=== PATIENT | male | born 1950 | race Caucasian/White ===

== ENCOUNTER 2018-05-28 10:09 | Emergency (ER) | payer MEDICARE, OTHER ==
[2018-05-28] MEDS ORDERED: DEXAMETHASONE 10 MG/ML VIAL PO STA (12:23)
--- NOTE | 2018-05-28 12:26 | ED Physician Documentation ---
PD HPI BACK PAIN - Stated complaint Stated Complaint: L LOWER BACK PAIN - Chief complaint Chief Complaint: Back Pain - History obtained from History obtained from: Patient, Family - History of Present Illness Timing - onset: How many days ago (2) Timing - duration: Days (2) Timing - details: Gradual onset, Still present Location: Lower, Left Quality: Pain, Spasm, Sharp Associated symptoms: No: Fever, Weakness, Numbness, Incontinent of urine, Unable to urinate, Hematuria, Incontinent of stool Improves with: Rest, Position, Meds Worsened by: Movement, Lifting, Twisting Contributing factors: Other (sweeping snow and ice off of car) Similar symptoms before: Has not had sx before Recently seen: Other - Additional information Additional information: 67-year-old male who is fairly sedentary has developed pain in his left lower back that is severe. He states that he went to see a chiropractor yesterday and was adjusted this helped for about 2 hours and then the pain was back worse than it had started. He states that when he went to get out of bed this morning he could barely move and so is come to the emergency department for evaluation. He denies any radiation of the pain down his leg or numbness or tingling in the perineum. He has not had any trouble with bowel or bladder. He does not know of any specific injury to the area his does state that she he was removing snow off of the car several days before this ever started. Review of Systems Constitutional: denies: Fever, Chills, Myalgias Eyes: denies: Decreased vision Ears: denies: Ear pain Nose: denies: Rhinorrhea / runny nose, Congestion Respiratory: denies: Cough GI: denies: Nausea, Vomiting : denies: Dysuria Skin: denies: Rash Musculoskeletal: reports: Back pain. denies: Neck pain, Extremity pain Neurologic: denies: Generalized weakness, Focal weakness, Numbness PD PAST MEDICAL HISTORY - Present Medications Home Medications: Ambulatory Orders Medication Instructions Recorded Confirmed Aspirin [Aspirin EC] 1 tab PO DAILY 05/28/18 05/28/18 Celecoxib 1 tab PO BID PRN 05/28/18 05/28/18 Cyclobenzaprine [Flexeril] 10 mg PO TID PRN #20 tablet 05/28/18 Hydrocodone/Acetaminophen 1 - 2 each PO Q6H PRN #14 tablet 05/28/18 [Hydrocodon-Acetaminophen 5-325] Multivitamin [Multivitamins] 1 tab PO DAILY 05/28/18 05/28/18 - Allergies Allergies/Adverse Reactions: Allergies Allergy/AdvReac Type Severity Reaction Status Date / Time iodine Allergy Rash Verified 05/28/18 10:19 PD ED PE NORMAL - Vitals Vital signs reviewed: Yes (hypertensive ) - General General: Alert and oriented X 3, No acute distress, Well developed/nourished - HEENT HEENT: Atraumatic, PERRL, EOMI - Respiratory Respiratory: No respiratory distress - Back Back: No CVA TTP, No spinal TTP, Other (There is specific point tenderness to the left lower lumbar paraspinous muscles above and not extending into the sciatic notch. There is not CVA tenderness. 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, No motor deficit, No sensory deficit, Normal speech Eye Opening: Spontaneous Motor: Obeys Commands Verbal: Oriented GCS Score: 15 - Psych Psych: Normal mood, Normal affect Results - Vitals Vitals: Vital Signs - 24 hr 05/28/18 10:16 Temperature 36.3 C L Heart Rate 79 Respiratory 18 Rate Blood Pressure 173/101 H O2 Saturation 100 Oxygen O2 Source Room air PD MEDICAL DECISION MAKING - ED course Complexity details: considered differential, d/w patient, d/w family ED course: 67-year-old previously well male with lumbar paraspinous muscle spasm is administered dexamethasone 10 mg orally and we will place him on some pain medication muscle relaxant. I have asked him to stop using a heating pack and to use ice and stretch. Departure - Departure Disposition: 01 Home, Self Care Clinical Impression: Lumbar paraspinal muscle spasm Condition: Stable Instructions: ED Low Back Pain Injury Follow-Up: ROXANNE DUBOIS [Primary Care Provider] - Prescriptions: Cyclobenzaprine [Flexeril] 10 mg PO TID PRN #20 tablet PRN Reason: Spasms Hydrocodone/Acetaminophen [Hydrocodon-Acetaminophen 5-325] 1 - 2 each PO Q6H PRN #14 tablet PRN Reason: pain
[2018-05-28 12:53] VITALS: BP 168/95
== END 2018-05-28 12:51 | disposition home or self-care (01) ==
LOC: ED 10:09
DX: M62.830 Muscle spasm of back (principal); Z79.82 Long term (current) use of aspirin
CPT/HCPCS: 99283

== ENCOUNTER 2019-06-04 00:23 | Emergency (ER) | payer MEDICARE, OTHER ==
[2019-06-04 00:35] VITALS: BP 167/86
--- NOTE | 2019-06-04 00:40 | ED Physician Documentation ---
History of Present Illness - Stated complaint Stated Complaint: FO IN EAR - Chief complaint Chief Complaint: Heent - Additonal information Additional information: This is a 68-year-old male who presents with a foreign object in his left ear. He was taking out his hearing aid and silicone shield piece remained behind in his left ear. He does not have discomfort. Review of Systems Constitutional: denies: Fever Ears: reports: Foreign body PD PAST MEDICAL HISTORY - Past Surgical History Past Surgical History: Yes - Present Medications Home Medications: Ambulatory Orders Medication Instructions Recorded Confirmed Aspirin [Aspirin EC] 1 tab PO DAILY 05/28/18 06/04/19 Multivitamin [Multivitamins] 1 tab PO DAILY 05/28/18 06/04/19 - Allergies Allergies/Adverse Reactions: Allergies Allergy/AdvReac Type Severity Reaction Status Date / Time iodine Allergy Rash Verified 06/04/19 00:32 - Social History Does the pt smoke?: No Smoking Status: Never smoker Does the pt drink ETOH?: No Does the pt have substance abuse?: No - Immunizations Immunizations are current?: Yes - POLST Patient has POLST: No PD ED PE NORMAL - Vitals Vital signs reviewed: Yes - General General: Alert and oriented X 3, No acute distress - HEENT HEENT: Other (There is a silicon circular object just inside the ear canal on the left. The external canal otherwise appear normal. Tympanic membrane intact.) - Cardiac Cardiac: Other (Warm, well-perfused skin) - Respiratory Respiratory: No respiratory distress - Neuro Neuro: Alert and oriented X 3 - Psych Psych: Normal mood, Normal affect Results - Vitals Vitals: Oxygen O2 Source Room air PD MEDICAL DECISION MAKING - ED course ED course: Patient presents with a silicone piece of his hearing aid retained in his left ear canal, this is visible on exam, fairly superficial in the canal and easily retrieved using forceps without any complication. There is no residual foreign body in the ear, the ear itself appears normal without inflammation and patient is have no other complaints. He was discharged home and he will follow-up with his primary care provider as needed. Departure - Departure Disposition: 01 Home, Self Care Clinical Impression: Foreign body in ear Qualifiers: Encounter type: initial encounter Laterality: left Qualified Code(s): T16.2XXA - Foreign body in left ear, initial encounter Condition: Good Comments: We removed the piece of hearing aid from your ear, if you have any further issues return to the emergency department or follow-up with your primary care provider Discharge Date/Time: 06/04/19 01:00
== END 2019-06-04 01:00 | disposition home or self-care (01) ==
LOC: ED 00:23
DX: T16.2XXA Foreign body in left ear, initial encounter (principal); X58.XXXA Exposure to other specified factors, initial encounter
CPT/HCPCS: 69200; 99281; 99282

== ENCOUNTER 2022-01-11 19:50 | Emergency (ER) | payer MEDICARE, OTHER ==
--- OUTSIDE RECORDS SUMMARY | 2022-01-11 20:00 | EXTERNAL MEDICAL SUMMARY RPT | Continuity of Care Document ---
:1950 Author Organization [facility] Address [address] [place] [phone] Phone Allergies No information. Encounters No information. Functional Status No information. Immunizations No information. Medications No information. Problems No information. Procedures No information. Results/Labs test date author facility value unit interpret ation Result panel 1 (unknown) (no (unknown) (unknown) (no value) (units (unk nown) date) unknown) (unknown) (no (unknown) (unknown) (no value) (units (unk nown) date) unknown) (unknown) (no (unknown) (unknown) 12/04/21 (units (unkno wn) date) unknown) (unknown) (no (unknown) (unknown) 14:02 (units (unkno wn) date) unknown) (unknown) (no (unknown) (unknown) [place] [address] (unit s (unknown) date) unknown) (unknown) (no (unknown) (unknown) Draft (units (unkno wn) date) unknown) (unknown) (no (unknown) (unknown) Rash (units (unkno wn) date) unknown) (unknown) (no (unknown) (unknown) Shows has a Positive (uni ts (unknown) date) results. unknown) (unknown) (no (unknown) (unknown) Sleep Visit (units (un known) date) unknown) (unknown) (no (unknown) (unknown) [facility] (units (unknown) date) Center unknown) (unknown) (no (unknown) (unknown) (no value) (units (unk nown) date) unknown) (unknown) (no (unknown) (unknown) 0 = Would never doze (uni ts (unknown) date) or sleep, 1 = Slight unknown) chance of dozing or sleeping, 2 = (unknown) (no (unknown) (unknown) 12/04/21 (units (unkno wn) date) unknown) (unknown) (no (unknown) (unknown) [id number] (units (unkno wn) date) unknown) (unknown) (no (unknown) (unknown) Age/Sex: 71 / M Date (uni ts (unknown) date) of Service: unknown) (unknown) (no (unknown) (unknown) Allergies (units (unkn own) date) unknown) (unknown) (no (unknown) (unknown) Attending Dr: Ochoa (uni ts (unknown) date) Jane CAICEDO unknown) (unknown) (no (unknown) (unknown) BMI 35.2 (units (unkno wn) date) unknown) (unknown) (no (unknown) (unknown) BP 149/81 H (units (un known) date) unknown) (unknown) (no (unknown) (unknown) Being a passenger in (uni ts (unknown) date) a motor vehicle for unknown) an hour or so: 1 = Slight (unknown) (no (unknown) (unknown) Blood Pressure (units (unknown) date) Location Lt brachial unknown) (unknown) (no (unknown) (unknown) Claustrophobia (units (unknown) date) () unknown) (unknown) (no (unknown) (unknown) : 1950 (units (unknown) date) Acct:[id number] unknown) (unknown) (no (unknown) (unknown) Dept at (units (unkno wn) date) . unknown) (unknown) (no (unknown) (unknown) Documented By: (units (unknown) date) Ochoa Lara MD unknown) 12/04/21 1402 (unknown) (no (unknown) (unknown) [place] Score: 8 (units (unknown) date) unknown) (unknown) (no (unknown) (unknown) [place] Sleepiness (units (unknown) date) Scale unknown) (unknown) (no (unknown) (unknown) Height 5 ft 11 in (units (unknown) date) unknown) (unknown) (no (unknown) (unknown) Insomnia, (units (unkn own) date) psychophysiological unknown) () (unknown) (no (unknown) (unknown) Intake (units (unkno wn) date) unknown) (unknown) (no (unknown) (unknown) Loc: SLEEP (units (unk nown) date) unknown) (unknown) (no (unknown) (unknown) Lying down in the (units (unknown) date) afternoon: 2 = unknown) Moderate (unknown) (no (unknown) (unknown) Medical History (units (unknown) date) (Reviewed 12/14/20 @ unknown) 14:41 by LILLIE Richmond) (unknown) (no (unknown) (unknown) Moderate chance of (units (unknown) date) dozing or sleeping, 3 unknown) = High chance of dozing or sleeping (unknown) (no (unknown) (unknown) Obesity (BMI (units (u nknown) date) 30-39.9) unknown) (unknown) (no (unknown) (unknown) Obstructive sleep (units (unknown) date) apnea unknown) (unknown) (no (unknown) (unknown) PFSH (units (unkno wn) date) unknown) (unknown) (no (unknown) (unknown) PPD Serum Adverse (units (unknown) date) Reaction (Uncoded unknown) 12/14/20 14:46) (unknown) (no (unknown) (unknown) Pain (units (unkno wn) date) unknown) (unknown) (no (unknown) (unknown) Pain scale (1-10): 1 (uni ts (unknown) date) unknown) (unknown) (no (unknown) (unknown) Patient: (units (unkno wn) date) Gold Sanchez MR#: unknown) M0003 (unknown) (no (unknown) (unknown) Position Sitting (units (unknown) date) unknown) (unknown) (no (unknown) (unknown) Pulse 82 (units (unkn own) date) unknown) (unknown) (no (unknown) (unknown) Questionnaires (units (unknown) date) unknown) (unknown) (no (unknown) (unknown) Reason For Visit (units (unknown) date) unknown) (unknown) (no (unknown) (unknown) Respiration 16 (units (unknown) date) unknown) (unknown) (no (unknown) (unknown) Signed By: (units (unk nown) date) unknown) (unknown) (no (unknown) (unknown) Sitting and Reading: (uni ts (unknown) date) 0 = Never (None) unknown) (unknown) (no (unknown) (unknown) Sitting and talking (unit s (unknown) date) to someone: 0 = Never unknown) (None) (unknown) (no (unknown) (unknown) Sitting inactive in (unit s (unknown) date) a public place: 2 = unknown) Moderate (unknown) (no (unknown) (unknown) Sitting quietly (units (unknown) date) after lunch (no unknown) alcohol): 1 = Slight (unknown) (no (unknown) (unknown) Smoking Status: (units (unknown) date) Never smoker unknown) (unknown) (no (unknown) (unknown) Social History (units (unknown) date) unknown) (unknown) (no (unknown) (unknown) Stopped for a few (units (unknown) date) minutes in traffic: 0 unknown) = Never (None) (unknown) (no (unknown) (unknown) This note may have (units (unknown) date) been all or partially unknown) generated using voice recognition (unknown) (no (unknown) (unknown) Tobacco + Substance (unit s (unknown) date) Use unknown) (unknown) (no (unknown) (unknown) Tobacco Status (units (unknown) date) unknown) (unknown) (no (unknown) (unknown) Visit Reasons: 6m (units (unknown) date) optigen/reschld from unknown) mee (unknown) (no (unknown) (unknown) Vitals (units (unkno wn) date) unknown) (unknown) (no (unknown) (unknown) Watching TV: 2 = (units (unknown) date) Moderate unknown) (unknown) (no (unknown) (unknown) Weight 253 lb (units ( unknown) date) unknown) (unknown) (no (unknown) (unknown) caregiver/support (units (unknown) date) person: No unknown) (unknown) (no (unknown) (unknown) details: to Luz (units (unknown) date) unknown) (unknown) (no (unknown) (unknown) have occurred. If (units (unknown) date) there are any unknown) questions, please contact the Medical Records (unknown) (no (unknown) (unknown) household members: (units (unknown) date) spouse unknown) (unknown) (no (unknown) (unknown) housing: house (units (unknown) date) unknown) (unknown) (no (unknown) (unknown) iodine Allergy (units (unknown) date) (Verified 12/14/20 unknown) 14:46) (unknown) (no (unknown) (unknown) lives independently: (uni ts (unknown) date) Yes unknown) (unknown) (no (unknown) (unknown) marital status: (units (unknown) date) unknown) (unknown) (no (unknown) (unknown) may occur. (units (unk nown) date) Occasional wrong-word unknown) or 'sound-alike' substitutions may have (unknown) (no (unknown) (unknown) occupational status: (uni ts (unknown) date) previously employed unknown) (unknown) (no (unknown) (unknown) occurred due to the (unit s (unknown) date) inherent limitations unknown) of voice recognition software. Please (unknown) (no (unknown) (unknown) read the note (units ( unknown) date) carefully and unknown) recognize, using context, where these substitutions (unknown) (no (unknown) (unknown) software. 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 (unknown) (no (unknown) (unknown) substance use type: (unit s (unknown) date) does not use unknown) Result panel 2 (unknown) (no (unknown) (unknown) (no value) (units (unk nown) date) unknown) (unknown) (no (unknown) (unknown) (no value) (units (unk nown) date) unknown) (unknown) (no (unknown) (unknown) 12/04/21 (units (unkno wn) date) unknown) (unknown) (no (unknown) (unknown) 14:02 (units (unkno wn) date) unknown) (unknown) (no (unknown) (unknown) [place] [id number] (unit s (unknown) date) unknown) (unknown) (no (unknown) (unknown) Draft (units (unkno wn) date) unknown) (unknown) (no (unknown) (unknown) Rash (units (unkno wn) date) unknown) (unknown) (no (unknown) (unknown) Shows has a Positive (uni ts (unknown) date) results. unknown) (unknown) (no (unknown) (unknown) Sleep Visit (units (un known) date) unknown) (unknown) (no (unknown) (unknown) [facility] (units (unknown) date) Center unknown) (unknown) (no (unknown) (unknown) (no value) (units (unk nown) date) unknown) (unknown) (no (unknown) (unknown) 0 = Would never doze (uni ts (unknown) date) or sleep, 1 = Slight unknown) chance of dozing or sleeping, 2 = (unknown) (no (unknown) (unknown) 12/04/21 (units (unkno wn) date) unknown) (unknown) (no (unknown) (unknown) [id number] (units (unkno wn) date) unknown) (unknown) (no (unknown) (unknown) Age/Sex: 71 / M Date (uni ts (unknown) date) of Service: unknown) (unknown) (no (unknown) (unknown) Allergies (units (unkn own) date) unknown) (unknown) (no (unknown) (unknown) Attending Dr: Ochoa (uni ts (unknown) date) Jane CAICEDO unknown) (unknown) (no (unknown) (unknown) BMI 35.2 (units (unkno wn) date) unknown) (unknown) (no (unknown) (unknown) BP 149/81 H (units (un known) date) unknown) (unknown) (no (unknown) (unknown) Being a passenger in (uni ts (unknown) date) a motor vehicle for unknown) an hour or so: 1 = Slight (unknown) (no (unknown) (unknown) Blood Pressure (units (unknown) date) Location Lt brachial unknown) (unknown) (no (unknown) (unknown) CPAP (8-18 cwp) (units (unknown) date) unknown) (unknown) (no (unknown) (unknown) Chief Complaint: (units (unknown) date) Here to follow-up unknown) regarding the effectiveness of therapy for (unknown) (no (unknown) (unknown) Claustrophobia (units (unknown) date) () unknown) (unknown) (no (unknown) (unknown) Clinical Course (units (unknown) date) unknown) (unknown) (no (unknown) (unknown) Condition is Onset: (unit s (unknown) date) Chronic and ongoing unknown) condition (unknown) (no (unknown) (unknown) : 1950 (units (unknown) date) Acct:[id number] unknown) (unknown) (no (unknown) (unknown) Dept at (units (unkno wn) date) . unknown) (unknown) (no (unknown) (unknown) Details: (units (unkno wn) date) unknown) (unknown) (no (unknown) (unknown) Documented By: (units (unknown) date) Ochoa Lara MD unknown) 12/04/21 1402 (unknown) (no (unknown) (unknown) [place] Score: 8 (units (unknown) date) unknown) (unknown) (no (unknown) (unknown) [place] Sleepiness (units (unknown) date) Scale unknown) (unknown) (no (unknown) (unknown) HPI (units (unkno wn) date) unknown) (unknown) (no (unknown) (unknown) HPI Sleep Follow Up (unit s (unknown) date) unknown) (unknown) (no (unknown) (unknown) Height 180.34 cm (units (unknown) date) unknown) (unknown) (no (unknown) (unknown) Insomnia, (units (unkn own) date) psychophysiological unknown) (-1957) (unknown) (no (unknown) (unknown) Intake (units (unkno wn) date) unknown) (unknown) (no (unknown) (unknown) Loc: SLEEP (units (unk nown) date) unknown) (unknown) (no (unknown) (unknown) Lying down in the (units (unknown) date) afternoon: 2 = unknown) Moderate (unknown) (no (unknown) (unknown) Medical History (units (unknown) date) (Reviewed 12/14/20 @ unknown) 14:41 by LILLIE Richmond) (unknown) (no (unknown) (unknown) Moderate chance of (units (unknown) date) dozing or sleeping, 3 unknown) = High chance of dozing or sleeping (unknown) (no (unknown) (unknown) Obesity (BMI (units (u nknown) date) 30-39.9) unknown) (unknown) (no (unknown) (unknown) Obstructive sleep (units (unknown) date) apnea unknown) (unknown) (no (unknown) (unknown) PFSH (units (unkno wn) date) unknown) (unknown) (no (unknown) (unknown) PPD Serum Adverse (units (unknown) date) Reaction (Uncoded unknown) 12/14/20 14:46) (unknown) (no (unknown) (unknown) Pain (units (unkno wn) date) unknown) (unknown) (no (unknown) (unknown) Pain scale (1-10): 1 (uni ts (unknown) date) unknown) (unknown) (no (unknown) (unknown) Patient reports (units (unknown) date) difficulty falling unknown) asleep is denied, difficulty staying asleep (unknown) (no (unknown) (unknown) Patient: (units (unkno wn) date) Gold Sanchez MR#: unknown) M0003 (unknown) (no (unknown) (unknown) Pertinent (units (unkn own) date) Positives/Negatives unknown) (unknown) (no (unknown) (unknown) Position Sitting (units (unknown) date) unknown) (unknown) (no (unknown) (unknown) Pulse 82 (units (unkno wn) date) unknown) (unknown) (no (unknown) (unknown) Questionnaires (units (unknown) date) unknown) (unknown) (no (unknown) (unknown) Reason For Visit (units (unknown) date) unknown) (unknown) (no (unknown) (unknown) Respiration 16 (units (unknown) date) unknown) (unknown) (no (unknown) (unknown) Hollie comes in today (uni ts (unknown) date) for follow-up on his unknown) CPAP therapy. We increased his (unknown) (no (unknown) (unknown) Signed By: (units (unk nown) date) unknown) (unknown) (no (unknown) (unknown) Sitting and Reading: (uni ts (unknown) date) 0 = Never (None) unknown) (unknown) (no (unknown) (unknown) Sitting and talking (unit s (unknown) date) to someone: 0 = Never unknown) (None) (unknown) (no (unknown) (unknown) Sitting inactive in (unit s (unknown) date) a public place: 2 = unknown) Moderate (unknown) (no (unknown) (unknown) Sitting quietly (units (unknown) date) after lunch (no unknown) alcohol): 1 = Slight (unknown) (no (unknown) (unknown) Sleep Schedule (units (unknown) date) Branch: consistent, unknown) daytime somnolence occasional, snoring not (unknown) (no (unknown) (unknown) Smoking Status: (units (unknown) date) Never smoker unknown) (unknown) (no (unknown) (unknown) Social History (units (unknown) date) unknown) (unknown) (no (unknown) (unknown) Stopped for a few (units (unknown) date) minutes in traffic: 0 unknown) = Never (None) (unknown) (no (unknown) (unknown) Symptoms (units (unkno wn) date) unknown) (unknown) (no (unknown) (unknown) This note may have (units (unknown) date) been all or partially unknown) generated using voice recognition (unknown) (no (unknown) (unknown) Tobacco + Substance (unit s (unknown) date) Use unknown) (unknown) (no (unknown) (unknown) Tobacco Status (units (unknown) date) unknown) (unknown) (no (unknown) (unknown) Treatment Effects: (units (unknown) date) Pap Treatment unknown) Response/Side Effects: adherent to current PAP (unknown) (no (unknown) (unknown) Treatment (units (unkn own) date) Response/Side Affects unknown) (unknown) (no (unknown) (unknown) Visit Reasons: 6m (units (unknown) date) optigen/reschld from unknown) mee (unknown) (no (unknown) (unknown) Visit type (FU): (units (unknown) date) follow up of ANETTE unknown) therapy Follow up evaluation of ANETTE therapy: (unknown) (no (unknown) (unknown) Vitals (units (unkno wn) date) unknown) (unknown) (no (unknown) (unknown) Watching TV: 2 = (units (unknown) date) Moderate unknown) (unknown) (no (unknown) (unknown) Weight 114.759 kg (units (unknown) date) unknown) (unknown) (no (unknown) (unknown) appreciated, apnea (units (unknown) date) not witnessed, unknown) choking or gasping Choking or Gasping Branch: (unknown) (no (unknown) (unknown) caregiver/support (units (unknown) date) person: No unknown) (unknown) (no (unknown) (unknown) consentrating/focusi (uni ts (unknown) date) ng durng the day unknown) (unknown) (no (unknown) (unknown) denied (units (unkno wn) date) unknown) (unknown) (no (unknown) (unknown) denied, early (units ( unknown) date) morning awakening unknown) rare, spending time in bed not sleeping a (unknown) (no (unknown) (unknown) denied, epworth sleep (uni ts (unknown) date) scale score (12/06), unknown) bruxism Bruxism Branch: denied, sleep (unknown) (no (unknown) (unknown) denies night sweats, (unit s (unknown) date) denies morning unknown) headache, reports nasal congestion at night, (unknown) (no (unknown) (unknown) denies nocturnal (units (unknown) date) palpitations, denies unknown) heart burn symptoms at night, denies (unknown) (no (unknown) (unknown) details: to Luz (units (unknown) date) unknown) (unknown) (no (unknown) (unknown) have occurred. If (units (unknown) date) there are any unknown) questions, please contact the Medical Records (unknown) (no (unknown) (unknown) his ANETTE (units (unkno wn) date) unknown) (unknown) (no (unknown) (unknown) household members: (units (unknown) date) spouse unknown) (unknown) (no (unknown) (unknown) housing: house (units (unknown) date) unknown) (unknown) (no (unknown) (unknown) iodine Allergy (units (unknown) date) (Verified 12/14/20 unknown) 14:46) (unknown) (no (unknown) (unknown) little less sleepy (units (unknown) date) throughout the day. unknown) He reports no difficulties with the (unknown) (no (unknown) (unknown) little, normal (units ( unknown) date) bedtime (3300-4989), unknown) normal wake time (6864-5031), sleep schedule (unknown) (no (unknown) (unknown) lives independently: (uni ts (unknown) date) Yes unknown) (unknown) (no (unknown) (unknown) machine or his full (units (unknown) date) face mask, despite unknown) his persistent claustrophia. His daytime (unknown) (no (unknown) (unknown) marital status: (units (unknown) date) unknown) (unknown) (no (unknown) (unknown) may occur. (units (unk nown) date) Occasional wrong-word unknown) or 'sound-alike' substitutions may have (unknown) (no (unknown) (unknown) nocturia, denies (units (unknown) date) pain, denies unknown) dizziness in the morning or denies trouble (unknown) (no (unknown) (unknown) occupational status: (uni ts (unknown) date) previously employed unknown) (unknown) (no (unknown) (unknown) occurred due to the (unit s (unknown) date) inherent limitations unknown) of voice recognition software. Please (unknown) (no (unknown) (unknown) on PAP well and (units (unknown) date) sleep quality well unknown) (unknown) (no (unknown) (unknown) pressure at last (units (unknown) date) visit to 8-18 [facility], unknown) and he has tolerated that well, feeling a (unknown) (no (unknown) (unknown) read the note (units ( unknown) date) carefully and unknown) recognize, using context, where these substitutions (unknown) (no (unknown) (unknown) reports dry mouth, (units (unknown) date) denies sore throat in unknown) the morning, denies nocturnal cough, (unknown) (no (unknown) (unknown) sleepiness has (units (unknown) date) improved on PAP unknown) therapy. (unknown) (no (unknown) (unknown) software. 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 (unknown) (no (unknown) (unknown) substance use type: (unit s (unknown) date) does not use unknown) (unknown) (no (unknown) (unknown) talking Sleep (units ( unknown) date) Talking Branch: unknown) denied and sleep walking Sleep Walking Branch: (unknown) (no (unknown) (unknown) treatment stable on (unit s (unknown) date) treatment unknown) Result panel 3 (unknown) (no (unknown) (unknown) (no value) (units (unk nown) date) unknown) (unknown) (no (unknown) (unknown) (no value) (units (unk nown) date) unknown) (unknown) (no (unknown) (unknown) 12/04/21 (units (unkno wn) date) unknown) (unknown) (no (unknown) (unknown) 14:02 (units (unkno wn) date) unknown) (unknown) (no (unknown) (unknown) MILO Palacios [id number] (unit s (unknown) date) unknown) (unknown) (no (unknown) (unknown) Draft (units (unkno wn) date) unknown) (unknown) (no (unknown) (unknown) Rash (units (unkno wn) date) unknown) (unknown) (no (unknown) (unknown) Shows has a Positive (uni ts (unknown) date) results. unknown) (unknown) (no (unknown) (unknown) Sleep Visit (units (un known) date) unknown) (unknown) (no (unknown) (unknown) [facility] (units (unknown) date) Center unknown) (unknown) (no (unknown) (unknown) (no value) (units (unk nown) date) unknown) (unknown) (no (unknown) (unknown) 0 = Would never doze (uni ts (unknown) date) or sleep, 1 = Slight unknown) chance of dozing or sleeping, 2 = (unknown) (no (unknown) (unknown) 12/04/21 (units (unkno wn) date) unknown) (unknown) (no (unknown) (unknown) [id number] (units (unkno wn) date) unknown) (unknown) (no (unknown) (unknown) Age/Sex: 71 / M Date (uni ts (unknown) date) of Service: unknown) (unknown) (no (unknown) (unknown) Allergies (units (unkn own) date) unknown) (unknown) (no (unknown) (unknown) Attending Dr: Ochoa (uni ts (unknown) date) Jane CAICEDO unknown) (unknown) (no (unknown) (unknown) BMI 35.2 (units (unkno wn) date) unknown) (unknown) (no (unknown) (unknown) BP 149/81 H (units (un known) date) unknown) (unknown) (no (unknown) (unknown) Being a passenger in (uni ts (unknown) date) a motor vehicle for unknown) an hour or so: 1 = Slight (unknown) (no (unknown) (unknown) Blood Pressure (units (unknown) date) Location Lt brachial unknown) (unknown) (no (unknown) (unknown) CPAP (8-18 cwp) (units (unknown) date) unknown) (unknown) (no (unknown) (unknown) Chief Complaint: (units (unknown) date) Here to follow-up unknown) regarding the effectiveness of therapy for (unknown) (no (unknown) (unknown) Claustrophobia (units (unknown) date) () unknown) (unknown) (no (unknown) (unknown) Clinical Course (units (unknown) date) unknown) (unknown) (no (unknown) (unknown) Condition is Onset: (unit s (unknown) date) Chronic and ongoing unknown) condition (unknown) (no (unknown) (unknown) : 1950 (units (unknown) date) Acct:[id number] unknown) (unknown) (no (unknown) (unknown) Dept at (units (unkno wn) date) . unknown) (unknown) (no (unknown) (unknown) Details: (units (unkno wn) date) unknown) (unknown) (no (unknown) (unknown) Documented By: (units (unknown) date) Ochoa Lara MD unknown) 12/04/21 1402 (unknown) (no (unknown) (unknown) [place] Score: 8 (units (unknown) date) unknown) (unknown) (no (unknown) (unknown) [place] Sleepiness (units (unknown) date) Scale unknown) (unknown) (no (unknown) (unknown) HPI (units (unkno wn) date) unknown) (unknown) (no (unknown) (unknown) HPI Sleep Follow Up (unit s (unknown) date) unknown) (unknown) (no (unknown) (unknown) Height 180.34 cm (units (unknown) date) unknown) (unknown) (no (unknown) (unknown) Insomnia, (units (unkn own) date) psychophysiological unknown) () (unknown) (no (unknown) (unknown) Intake (units (unkno wn) date) unknown) (unknown) (no (unknown) (unknown) Loc: SLEEP (units (unk nown) date) unknown) (unknown) (no (unknown) (unknown) Lying down in the (units (unknown) date) afternoon: 2 = unknown) Moderate (unknown) (no (unknown) (unknown) Medical History (units (unknown) date) (Reviewed 12/14/20 @ unknown) 14:41 by LILLIE Richmond) (unknown) (no (unknown) (unknown) Moderate chance of (units (unknown) date) dozing or sleeping, 3 unknown) = High chance of dozing or sleeping (unknown) (no (unknown) (unknown) Obesity (BMI (units (u nknown) date) 30-39.9) unknown) (unknown) (no (unknown) (unknown) Obstructive sleep (units (unknown) date) apnea unknown) (unknown) (no (unknown) (unknown) PFSH (units (unkno wn) date) unknown) (unknown) (no (unknown) (unknown) PPD Serum Adverse (units (unknown) date) Reaction (Uncoded unknown) 12/14/20 14:46) (unknown) (no (unknown) (unknown) Pain (units (unkno wn) date) unknown) (unknown) (no (unknown) (unknown) Pain scale (1-10): 1 (uni ts (unknown) date) unknown) (unknown) (no (unknown) (unknown) Patient reports (units (unknown) date) difficulty falling unknown) asleep is denied, difficulty staying asleep (unknown) (no (unknown) (unknown) Patient: (units (unkno wn) date) Gold Snachez MR#: unknown) M0003 (unknown) (no (unknown) (unknown) Pertinent (units (unkn own) date) Positives/Negatives unknown) (unknown) (no (unknown) (unknown) Position Sitting (units (unknown) date) unknown) (unknown) (no (unknown) (unknown) Pulse 82 (units (unkno wn) date) unknown) (unknown) (no (unknown) (unknown) Questionnaires (units (unknown) date) unknown) (unknown) (no (unknown) (unknown) Reason For Visit (units (unknown) date) unknown) (unknown) (no (unknown) (unknown) Respiration 16 (units (unknown) date) unknown) (unknown) (no (unknown) (unknown) Hollie comes in today (uni ts (unknown) date) for follow-up on his unknown) CPAP therapy. We increased his (unknown) (no (unknown) (unknown) Signed By: (units (unk nown) date) unknown) (unknown) (no (unknown) (unknown) Sitting and Reading: (uni ts (unknown) date) 0 = Never (None) unknown) (unknown) (no (unknown) (unknown) Sitting and talking (unit s (unknown) date) to someone: 0 = Never unknown) (None) (unknown) (no (unknown) (unknown) Sitting inactive in (unit s (unknown) date) a public place: 2 = unknown) Moderate (unknown) (no (unknown) (unknown) Sitting quietly (units (unknown) date) after lunch (no unknown) alcohol): 1 = Slight (unknown) (no (unknown) (unknown) Sleep Schedule (units (unknown) date) Branch: consistent, unknown) daytime somnolence occasional, snoring not (unknown) (no (unknown) (unknown) Smoking Status: (units (unknown) date) Never smoker unknown) (unknown) (no (unknown) (unknown) Social History (units (unknown) date) unknown) (unknown) (no (unknown) (unknown) Stopped for a few (units (unknown) date) minutes in traffic: 0 unknown) = Never (None) (unknown) (no (unknown) (unknown) Symptoms (units (unkno wn) date) unknown) (unknown) (no (unknown) (unknown) This note may have (units (unknown) date) been all or partially unknown) generated using voice recognition (unknown) (no (unknown) (unknown) Tobacco + Substance (unit s (unknown) date) Use unknown) (unknown) (no (unknown) (unknown) Tobacco Status (units (unknown) date) unknown) (unknown) (no (unknown) (unknown) Treatment Effects: (units (unknown) date) Pap Treatment unknown) Response/Side Effects: adherent to current PAP (unknown) (no (unknown) (unknown) Treatment (units (unkn own) date) Response/Side Affects unknown) (unknown) (no (unknown) (unknown) Visit Reasons: 6m (units (unknown) date) optigen/reschld from unknown) mee (unknown) (no (unknown) (unknown) Visit type (FU): (units (unknown) date) follow up of ANETTE unknown) therapy Follow up evaluation of ANETTE therapy: (unknown) (no (unknown) (unknown) Vitals (units (unkno wn) date) unknown) (unknown) (no (unknown) (unknown) Watching TV: 2 = (units (unknown) date) Moderate unknown) (unknown) (no (unknown) (unknown) Weight 114.759 kg (units (unknown) date) unknown) (unknown) (no (unknown) (unknown) appreciated, apnea (units (unknown) date) not witnessed, unknown) choking or gasping Choking or Gasping Branch: (unknown) (no (unknown) (unknown) caregiver/support (units (unknown) date) person: No unknown) (unknown) (no (unknown) (unknown) consentrating/focusi (uni ts (unknown) date) ng durng the day unknown) (unknown) (no (unknown) (unknown) denied (units (unkno wn) date) unknown) (unknown) (no (unknown) (unknown) denied, early (units ( unknown) date) morning awakening unknown) rare, spending time in bed not sleeping a li (unknown) (no (unknown) (unknown) denied, epworth sleep (uni ts (unknown) date) scale score (12/06), unknown) bruxism Bruxism Branch: denied, sleep (unknown) (no (unknown) (unknown) denies night sweats, (unit s (unknown) date) denies morning unknown) headache, reports nasal congestion at night, (unknown) (no (unknown) (unknown) denies nocturnal (units (unknown) date) palpitations, denies unknown) heart burn symptoms at night, denies (unknown) (no (unknown) (unknown) details: to Luz (units (unknown) date) unknown) (unknown) (no (unknown) (unknown) have occurred. If (units (unknown) date) there are any unknown) questions, please contact the Medical Records (unknown) (no (unknown) (unknown) his ANETTE (units (unkno wn) date) unknown) (unknown) (no (unknown) (unknown) household members: (units (unknown) date) spouse unknown) (unknown) (no (unknown) (unknown) housing: house (units (unknown) date) unknown) (unknown) (no (unknown) (unknown) iodine Allergy (units (unknown) date) (Verified 12/14/20 unknown) 14:46) (unknown) (no (unknown) (unknown) little less sleepy (units (unknown) date) throughout the day. unknown) He reports no difficulties with the (unknown) (no (unknown) (unknown) lives independently: (uni ts (unknown) date) Yes unknown) (unknown) (no (unknown) (unknown) machine or his full (units (unknown) date) face mask, despite unknown) his persistent claustrophia. His daytime (unknown) (no (unknown) (unknown) marital status: (units (unknown) date) unknown) (unknown) (no (unknown) (unknown) may occur. (units (unk nown) date) Occasional wrong-word unknown) or 'sound-alike' substitutions may have (unknown) (no (unknown) (unknown) nocturia, denies (units (unknown) date) pain, denies unknown) dizziness in the morning or denies trouble (unknown) (no (unknown) (unknown) occupational status: (uni ts (unknown) date) previously employed unknown) (unknown) (no (unknown) (unknown) occurred due to the (unit s (unknown) date) inherent limitations unknown) of voice recognition software. Please (unknown) (no (unknown) (unknown) on PAP well and (units (unknown) date) sleep quality well unknown) (unknown) (no (unknown) (unknown) pressure at last (units (unknown) date) visit to 8-[facility], unknown) and he has tolerated that well, feeling a (unknown) (no (unknown) (unknown) read the note (units ( unknown) date) carefully and unknown) recognize, using context, where these substitutions (unknown) (no (unknown) (unknown) reports dry mouth, (units (unknown) date) denies sore throat in unknown) the morning, denies nocturnal cough, (unknown) (no (unknown) (unknown) sleepiness has (units (unknown) date) improved on PAP unknown) therapy. The pressure does wake him up at night. (unknown) (no (unknown) (unknown) software. 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 (unknown) (no (unknown) (unknown) substance use type: (unit s (unknown) date) does not use unknown) (unknown) (no (unknown) (unknown) talking Sleep (units ( unknown) date) Talking Branch: unknown) denied and sleep walking Sleep Walking Branch: (unknown) (no (unknown) (unknown) treatment stable on (unit s (unknown) date) treatment unknown) (unknown) (no (unknown) (unknown) ttle, normal bedtime (uni ts (unknown) date) ([id number]), normal unknown) wake time (0233-0513), sleep schedule Result panel 4 (unknown) (no (unknown) (unknown) (no value) (units (unk nown) date) unknown) (unknown) (no (unknown) (unknown) (no value) (units (unk nown) date) unknown) (unknown) (no (unknown) (unknown) 12/04/21 (units (unkno wn) date) unknown) (unknown) (no (unknown) (unknown) 14:02 (units (unkno wn) date) unknown) (unknown) (no (unknown) (unknown) [place] [id number] (unit s (unknown) date) unknown) (unknown) (no (unknown) (unknown) Draft (units (unkno wn) date) unknown) (unknown) (no (unknown) (unknown) Rash (units (unkno wn) date) unknown) (unknown) (no (unknown) (unknown) Shows has a Positive (uni ts (unknown) date) results. unknown) (unknown) (no (unknown) (unknown) Sleep Visit (units (un known) date) unknown) (unknown) (no (unknown) (unknown) [facility] (units ([facility]) date[facility] Center unknown) (unknown) (no (unknown) (unknown) (no value) (units (unk nown) date) unknown) (unknown) (no (unknown) (unknown) 0 = Would never doze (uni ts (unknown) date) or sleep, 1 = Slight unknown) chance of dozing or sleeping, 2 = (unknown) (no (unknown) (unknown) 12/04/21 (units (unkno wn) date) unknown) (unknown) (no (unknown) (unknown) [id number] (units (unkno wn) date) unknown) (unknown) (no (unknown) (unknown) Age/Sex: 71 / M Date (uni ts (unknown) date) of Service: unknown) (unknown) (no (unknown) (unknown) Allergies (units (unkn own) date) unknown) (unknown) (no (unknown) (unknown) Attending Dr: Ochoa (uni ts (unknown) date) Jane CAICEDO unknown) (unknown) (no (unknown) (unknown) BMI 35.2 (units (unkno wn) date) unknown) (unknown) (no (unknown) (unknown) BP 149/81 H (units (un known) date) unknown) (unknown) (no (unknown) (unknown) Being a passenger in (uni ts (unknown) date) a motor vehicle for unknown) an hour or so: 1 = Slight (unknown) (no (unknown) (unknown) Blood Pressure (units (unknown) date) Location Lt brachial unknown) (unknown) (no (unknown) (unknown) CPAP (8-18 cwp) (units (unknown) date) unknown) (unknown) (no (unknown) (unknown) Cardiac (units (unkno wn) date) unknown) (unknown) (no (unknown) (unknown) Chief Complaint: (units (unknown) date) Here to follow-up unknown) regarding the effectiveness of therapy for (unknown) (no (unknown) (unknown) Claustrophobia (units (unknown) date) () unknown) (unknown) (no (unknown) (unknown) Clinical Course (units (unknown) date) unknown) (unknown) (no (unknown) (unknown) Condition is Onset: (unit s (unknown) date) Chronic and ongoing unknown) condition (unknown) (no (unknown) (unknown) Const (units (unkno wn) date) unknown) (unknown) (no (unknown) (unknown) : 1950 (units (unknown) date) Acct:[id number] unknown) (unknown) (no (unknown) (unknown) Denies chest pain or (uni ts (unknown) date) nocturnal unknown) palpitations (unknown) (no (unknown) (unknown) Denies dyspnea at (units (unknown) date) night or cough unknown) (unknown) (no (unknown) (unknown) Denies morning (units (unknown) date) headache or dizzy in unknown) the morning (unknown) (no (unknown) (unknown) Denies reflux pain (units (unknown) date) at night unknown) (unknown) (no (unknown) (unknown) Denies seasonal (units (unknown) date) allergies unknown) (unknown) (no (unknown) (unknown) Denies snoring and (units (unknown) date) Denies stops unknown) breathing during sleep (unknown) (no (unknown) (unknown) Dept at (units (unkno wn) date) . unknown) (unknown) (no (unknown) (unknown) Details: (units (unkno wn) date) unknown) (unknown) (no (unknown) (unknown) Documented By: (units (unknown) date) Ochoa Lara MD unknown) 12/04/21 1402 (unknown) (no (unknown) (unknown) ENT (units (unkno wn) date) unknown) (unknown) (no (unknown) (unknown) [place] Score: 8 (units (unknown) date) unknown) (unknown) (no (unknown) (unknown) [place] Sleepiness (units (unknown) date) Scale unknown) (unknown) (no (unknown) (unknown) Eyes (units (unkno wn) date) unknown) (unknown) (no (unknown) (unknown) GI (units (unkno wn) date) unknown) (unknown) (no (unknown) (unknown) HPI (units (unkno wn) date) unknown) (unknown) (no (unknown) (unknown) HPI Sleep Follow Up (unit s (unknown) date) unknown) (unknown) (no (unknown) (unknown) Height 180.34 cm (units (unknown) date) unknown) (unknown) (no (unknown) (unknown) Insomnia, (units (unkn own) date) psychophysiological unknown) (-1957) (unknown) (no (unknown) (unknown) Intake (units (unkno wn) date) unknown) (unknown) (no (unknown) (unknown) Loc: SLEEP (units (unk nown) date) unknown) (unknown) (no (unknown) (unknown) Lying down in the (units (unknown) date) afternoon: 2 = unknown) Moderate (unknown) (no (unknown) (unknown) Medical History (units (unknown) date) (Reviewed 12/04/21 @ unknown) 14:34 by Ochoa Lara MD) (unknown) (no (unknown) (unknown) Moderate chance of (units (unknown) date) dozing or sleeping, 3 unknown) = High chance of dozing or sleeping (unknown) (no (unknown) (unknown) Musc (units (unkno wn) date) unknown) (unknown) (no (unknown) (unknown) Neurological (units (u nknown) date) unknown) (unknown) (no (unknown) (unknown) Obesity (BMI (units (u nknown) date) 30-39.9) unknown) (unknown) (no (unknown) (unknown) Obstructive sleep (units (unknown) date) apnea unknown) (unknown) (no (unknown) (unknown) PFSH (units (unkno wn) date) unknown) (unknown) (no (unknown) (unknown) PPD Serum Adverse (units (unknown) date) Reaction (Uncoded unknown) 12/14/20 14:46) (unknown) (no (unknown) (unknown) Pain (units (unkno wn) date) unknown) (unknown) (no (unknown) (unknown) Pain scale (1-10): 1 (uni ts (unknown) date) unknown) (unknown) (no (unknown) (unknown) Patient reports (units (unknown) date) difficulty falling unknown) asleep is denied, difficulty staying asleep (unknown) (no (unknown) (unknown) Patient: (units (unkno wn) date) Gold Sanchez MR#: unknown) [id number] (unknown) (no (unknown) (unknown) Pertinent (units (unkn own) date) Positives/Negatives unknown) (unknown) (no (unknown) (unknown) Position Sitting (units (unknown) date) unknown) (unknown) (no (unknown) (unknown) Psychological (units ( unknown) date) unknown) (unknown) (no (unknown) (unknown) Pulse 82 (units (unkno wn) date) unknown) (unknown) (no (unknown) (unknown) Questionnaires (units (unknown) date) unknown) (unknown) (no (unknown) (unknown) ROS Sleep (units (unkn own) date) unknown) (unknown) (no (unknown) (unknown) Reason For Visit (units (unknown) date) unknown) (unknown) (no (unknown) (unknown) Reports myalgia (units (unknown) date) interfering with unknown) sleep; Denies arthralgia interfering with (unknown) (no (unknown) (unknown) Reports napping on (units (unknown) date) occassion; Denies unknown) hypnagogic hallucinations or sleep (unknown) (no (unknown) (unknown) Reports nasal (units ( unknown) date) congestion at night; unknown) Denies epistaxis, runny nose, sore throat in (unknown) (no (unknown) (unknown) Respiration 16 (units (unknown) date) unknown) (unknown) (no (unknown) (unknown) Respiratory (units (un known) date) unknown) (unknown) (no (unknown) (unknown) Hollie comes in today (uni ts (unknown) date) for follow-up on his unknown) CPAP therapy. We increased his (unknown) (no (unknown) (unknown) Signed By: (units (unk nown) date) unknown) (unknown) (no (unknown) (unknown) Sitting and Reading: (uni ts (unknown) date) 0 = Never (None) unknown) (unknown) (no (unknown) (unknown) Sitting and talking (unit s (unknown) date) to someone: 0 = Never unknown) (None) (unknown) (no (unknown) (unknown) Sitting inactive in (unit s (unknown) date) a public place: 2 = unknown) Moderate (unknown) (no (unknown) (unknown) Sitting quietly (units (unknown) date) after lunch (no unknown) alcohol): 1 = Slight (unknown) (no (unknown) (unknown) Sleep Schedule (units (unknown) date) Branch: consistent, unknown) daytime somnolence occasional, snoring not (unknown) (no (unknown) (unknown) Smoking Status: (units (unknown) date) Never smoker unknown) (unknown) (no (unknown) (unknown) Social History (units (unknown) date) unknown) (unknown) (no (unknown) (unknown) Stopped for a few (units (unknown) date) minutes in traffic: 0 unknown) = Never (None) (unknown) (no (unknown) (unknown) Symptoms (units (unkno wn) date) unknown) (unknown) (no (unknown) (unknown) This note may have (units (unknown) date) been all or partially unknown) generated using voice recognition (unknown) (no (unknown) (unknown) Tobacco + Substance (unit s (unknown) date) Use unknown) (unknown) (no (unknown) (unknown) Tobacco Status (units (unknown) date) unknown) (unknown) (no (unknown) (unknown) Treatment Effects: (units (unknown) date) Pap Treatment unknown) Response/Side Effects: adherent to current PAP (unknown) (no (unknown) (unknown) Treatment (units (unkn own) date) Response/Side Affects unknown) (unknown) (no (unknown) (unknown) Visit Reasons: 6m (units (unknown) date) optigen/reschld from unknown) mee (unknown) (no (unknown) (unknown) Visit type (FU): (units (unknown) date) follow up of ANETTE unknown) therapy Follow up evaluation of ANETTE therapy: (unknown) (no (unknown) (unknown) Vitals (units (unkno wn) date) unknown) (unknown) (no (unknown) (unknown) Watching TV: 2 = (units (unknown) date) Moderate unknown) (unknown) (no (unknown) (unknown) Weight 114.759 kg (units (unknown) date) unknown) (unknown) (no (unknown) (unknown) appreciated, apnea (units (unknown) date) not witnessed, unknown) choking or gasping Choking or Gasping Branch: (unknown) (no (unknown) (unknown) caregiver/support (units (unknown) date) person: No unknown) (unknown) (no (unknown) (unknown) consentrating/focusi (uni ts (unknown) date) ng durng the day unknown) (unknown) (no (unknown) (unknown) denied (units (unkno wn) date) unknown) (unknown) (no (unknown) (unknown) denied, early (units ( unknown) date) morning awakening unknown) rare, spending time in bed not sleeping a li (unknown) (no (unknown) (unknown) denied, epworth sleep (uni ts (unknown) date) scale score (12/06), unknown) bruxism Bruxism Branch: denied, sleep (unknown) (no (unknown) (unknown) denies night sweats, (unit s (unknown) date) denies morning unknown) headache, reports nasal congestion at night, (unknown) (no (unknown) (unknown) denies nocturnal (units (unknown) date) palpitations, denies unknown) heart burn symptoms at night, denies (unknown) (no (unknown) (unknown) details: to Luz (units (unknown) date) unknown) (unknown) (no (unknown) (unknown) have occurred. If (units (unknown) date) there are any unknown) questions, please contact the Medical Records (unknown) (no (unknown) (unknown) his ANETTE (units (unkno wn) date) unknown) (unknown) (no (unknown) (unknown) household members: (units (unknown) date) spouse unknown) (unknown) (no (unknown) (unknown) housing: house (units (unknown) date) unknown) (unknown) (no (unknown) (unknown) iodine Allergy (units (unknown) date) (Verified 12/14/20 unknown) 14:46) (unknown) (no (unknown) (unknown) little less sleepy (units (unknown) date) throughout the day. unknown) He reports no difficulties with the (unknown) (no (unknown) (unknown) lives independently: (uni ts (unknown) date) Yes unknown) (unknown) (no (unknown) (unknown) machine or his full (units (unknown) date) face mask, despite unknown) his persistent claustrophia. His daytime (unknown) (no (unknown) (unknown) marital status: (units (unknown) date) unknown) (unknown) (no (unknown) (unknown) may occur. (units (unk nown) date) Occasional wrong-word unknown) or 'sound-alike' substitutions may have (unknown) (no (unknown) (unknown) nocturia, denies (units (unknown) date) pain, denies unknown) dizziness in the morning or denies trouble (unknown) (no (unknown) (unknown) occupational status: (uni ts (unknown) date) previously employed unknown) (unknown) (no (unknown) (unknown) occurred due to the (unit s (unknown) date) inherent limitations unknown) of voice recognition software. Please (unknown) (no (unknown) (unknown) on PAP well and (units (unknown) date) sleep quality well unknown) (unknown) (no (unknown) (unknown) paralysis (units (unkn own) date) unknown) (unknown) (no (unknown) (unknown) pressure at last (units (unknown) date) visit to 8-[facility], unknown) and he has tolerated that well, feeling a (unknown) (no (unknown) (unknown) read the note (units ( unknown) date) carefully and unknown) recognize, using context, where these substitutions (unknown) (no (unknown) (unknown) reports dry mouth, (units (unknown) date) denies sore throat in unknown) the morning, denies nocturnal cough, (unknown) (no (unknown) (unknown) sleep, weakness (units (unknown) date) associated with unknown) strong emotion or sleep paralysis (unknown) (no (unknown) (unknown) sleepiness has (units (unknown) date) improved on PAP unknown) therapy. The pressure does wake him up at night. (unknown) (no (unknown) (unknown) software. 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 (unknown) (no (unknown) (unknown) substance use type: (unit s (unknown) date) does not use unknown) (unknown) (no (unknown) (unknown) talking Sleep (units ( unknown) date) Talking Branch: unknown) denied and sleep walking Sleep Walking Branch: (unknown) (no (unknown) (unknown) the morning or dry (units (unknown) date) mouth in the morning unknown) (unknown) (no (unknown) (unknown) treatment stable on (unit s (unknown) date) treatment unknown) (unknown) (no (unknown) (unknown) ttle, normal bedtime (uni ts (unknown) date) (8294-6044), normal unknown) wake time (0856-8698), sleep schedule Result panel 5 (unknown) (no (unknown) (unknown) (no value) (units (unk nown) date) unknown) (unknown) (no (unknown) (unknown) (no value) (units (unk nown) date) unknown) (unknown) (no (unknown) (unknown) 12/04/21 (units (unkno wn) date) unknown) (unknown) (no (unknown) (unknown) 14:02 (units (unkno wn) date) unknown) (unknown) (no (unknown) (unknown) [place] [id number] (unit s (unknown) date) unknown) (unknown) (no (unknown) (unknown) Draft (units (unkno wn) date) unknown) (unknown) (no (unknown) (unknown) Rash (units (unkno wn) date) unknown) (unknown) (no (unknown) (unknown) Shows has a Positive (uni ts (unknown) date) results. unknown) (unknown) (no (unknown) (unknown) Sleep Visit (units (un known) date) unknown) (unknown) (no (unknown) (unknown) [facility] ([facility] ([facility]) [facility] Center unknown) (unknown) (no (unknown) (unknown) (no value) (units (unk nown) date) unknown) (unknown) (no (unknown) (unknown) Device data last 90 (unit s (unknown) date) days: unknown) (unknown) (no (unknown) (unknown) 0 = Would never doze (uni ts (unknown) date) or sleep, 1 = Slight unknown) chance of dozing or sleeping, 2 = (unknown) (no (unknown) (unknown) 0.1 (units (unkno wn) date) unknown) (unknown) (no (unknown) (unknown) 12/04/21 (units (unkno wn) date) unknown) (unknown) (no (unknown) (unknown) [id number] (units (unkno wn) date) unknown) (unknown) (no (unknown) (unknown) Affect: normal (units (unknown) date) affect unknown) (unknown) (no (unknown) (unknown) Age/Sex: 71 / M Date (uni ts (unknown) date) of Service: unknown) (unknown) (no (unknown) (unknown) Allergies (units (unkn own) date) unknown) (unknown) (no (unknown) (unknown) Attending Dr: Ochoa (uni ts (unknown) date) Jane CAICEDO unknown) (unknown) (no (unknown) (unknown) AutoCPAP Set (units (u nknown) date) Pressures: 8-18 cwp unknown) 95th percentile pressure: 13.8 cwp (unknown) (no (unknown) (unknown) BMI 35.2 (units (unkno wn) date) unknown) (unknown) (no (unknown) (unknown) BP 149/81 H (units (un known) date) unknown) (unknown) (no (unknown) (unknown) Being a passenger in (uni ts (unknown) date) a motor vehicle for unknown) an hour or so: 1 = Slight (unknown) (no (unknown) (unknown) Blood Pressure (units (unknown) date) Location Lt brachial unknown) (unknown) (no (unknown) (unknown) CPAP (8-18 cwp) (units (unknown) date) unknown) (unknown) (no (unknown) (unknown) Cardiac (units (unkno wn) date) unknown) (unknown) (no (unknown) (unknown) Cardio (units (unkno wn) date) unknown) (unknown) (no (unknown) (unknown) Chief Complaint: (units (unknown) date) Here to follow-up unknown) regarding the effectiveness of therapy for (unknown) (no (unknown) (unknown) Claustrophobia (units (unknown) date) () unknown) (unknown) (no (unknown) (unknown) Clinical Course (units (unknown) date) unknown) (unknown) (no (unknown) (unknown) Cognition: normal (units (unknown) date) cognition unknown) (unknown) (no (unknown) (unknown) Condition is Onset: (unit s (unknown) date) Chronic and ongoing unknown) condition (unknown) (no (unknown) (unknown) Conjunctivae: (units ( unknown) date) conjunctivae normal unknown) (unknown) (no (unknown) (unknown) Const (units (unkno wn) date) unknown) (unknown) (no (unknown) (unknown) : 1950 (units (unknown) date) Acct:[id number] unknown) (unknown) (no (unknown) (unknown) Denies chest pain or (uni ts (unknown) date) nocturnal unknown) palpitations (unknown) (no (unknown) (unknown) Denies dyspnea at (units (unknown) date) night or cough unknown) (unknown) (no (unknown) (unknown) Denies morning (units (unknown) date) headache or dizzy in unknown) the morning (unknown) (no (unknown) (unknown) Denies reflux pain (units (unknown) date) at night unknown) (unknown) (no (unknown) (unknown) Denies seasonal (units (unknown) date) allergies unknown) (unknown) (no (unknown) (unknown) Denies snoring and (units (unknown) date) Denies stops unknown) breathing during sleep (unknown) (no (unknown) (unknown) Dept at (units (unkno wn) date) . unknown) (unknown) (no (unknown) (unknown) Details: (units (unkno wn) date) unknown) (unknown) (no (unknown) (unknown) Documented By: (units (unknown) date) Ochoa Lara MD unknown) 12/04/21 1402 (unknown) (no (unknown) (unknown) ENT (units (unkno wn) date) unknown) (unknown) (no (unknown) (unknown) Ears: hearing (units ( unknown) date) grossly normal unknown) bilaterally and external ears normal (unknown) (no (unknown) (unknown) Effort + Inspection: (uni ts (unknown) date) normal respiratory unknown) effort, able to speak in complete (unknown) (no (unknown) (unknown) [place] [place] Score: 8 (units (unknown) date) unknown) (unknown) (no (unknown) (unknown) [place] Sleepiness (units (unknown) date) Scale unknown) (unknown) (no (unknown) (unknown) Exam (units (unkno wn) date) unknown) (unknown) (no (unknown) (unknown) Exam Narrative (units (unknown) date) unknown) (unknown) (no (unknown) (unknown) Exam Narrative: (units (unknown) date) unknown) (unknown) (no (unknown) (unknown) Eyes (units (unkno wn) date) unknown) (unknown) (no (unknown) (unknown) GI (units (unkno wn) date) unknown) (unknown) (no (unknown) (unknown) General: cooperative (uni ts (unknown) date) and no acute distress unknown) (unknown) (no (unknown) (unknown) General: patient (units (unknown) date) alert, patient unknown) oriented x3, moves all extremities and no focal (unknown) (no (unknown) (unknown) HENMT (units (unkno wn) date) unknown) (unknown) (no (unknown) (unknown) HPI (units (unkno wn) date) unknown) (unknown) (no (unknown) (unknown) HPI Sleep Follow Up (unit s (unknown) date) unknown) (unknown) (no (unknown) (unknown) Head: normal to (units (unknown) date) inspection unknown) (unknown) (no (unknown) (unknown) Height 180.34 cm (units (unknown) date) unknown) (unknown) (no (unknown) (unknown) Insomnia, (units (unkn own) date) psychophysiological unknown) (-1957) (unknown) (no (unknown) (unknown) Intake (units (unkno wn) date) unknown) (unknown) (no (unknown) (unknown) Loc: SLEEP (units (unk nown) date) unknown) (unknown) (no (unknown) (unknown) Lying down in the (units (unknown) date) afternoon: 2 = unknown) Moderate (unknown) (no (unknown) (unknown) Medical History (units (unknown) date) (Reviewed 12/04/21 @ unknown) 14:34 by Ochoa Lara MD) (unknown) (no (unknown) (unknown) Moderate chance of (units (unknown) date) dozing or sleeping, 3 unknown) = High chance of dozing or sleeping (unknown) (no (unknown) (unknown) Mood: congruent mood (uni ts (unknown) date) unknown) (unknown) (no (unknown) (unknown) Musc (units (unkno wn) date) unknown) (unknown) (no (unknown) (unknown) Neck (units (unkno wn) date) unknown) (unknown) (no (unknown) (unknown) Neck: normal visual (unit s (unknown) date) inspection unknown) (unknown) (no (unknown) (unknown) Neuro (units (unkno wn) date) unknown) (unknown) (no (unknown) (unknown) Neurological (units (u nknown) date) unknown) (unknown) (no (unknown) (unknown) Nutritional (units (un known) date) Appearance: obese unknown) (unknown) (no (unknown) (unknown) Obesity (BMI (units (u nknown) date) 30-39.9) unknown) (unknown) (no (unknown) (unknown) Obstructive sleep (units (unknown) date) apnea unknown) (unknown) (no (unknown) (unknown) PFSH (units (unkno wn) date) unknown) (unknown) (no (unknown) (unknown) PPD Serum Adverse (units (unknown) date) Reaction (Uncoded unknown) 12/14/20 14:46) (unknown) (no (unknown) (unknown) Pain (units (unkno wn) date) unknown) (unknown) (no (unknown) (unknown) Pain scale (1-10): 1 (uni ts (unknown) date) unknown) (unknown) (no (unknown) (unknown) Patient reports (units (unknown) date) difficulty falling unknown) asleep is denied, difficulty staying asleep (unknown) (no (unknown) (unknown) Patient: (units (unkno wn) date) Gold Sanchez MR#: unknown) [id number] (unknown) (no (unknown) (unknown) Pertinent (units (unkn own) date) Positives/Negatives unknown) (unknown) (no (unknown) (unknown) Position Sitting (units (unknown) date) unknown) (unknown) (no (unknown) (unknown) Psych (units (unkno wn) date) unknown) (unknown) (no (unknown) (unknown) Psychological (units ( unknown) date) unknown) (unknown) (no (unknown) (unknown) Pulse 82 (units (unkno wn) date) unknown) (unknown) (no (unknown) (unknown) Questionnaires (units (unknown) date) unknown) (unknown) (no (unknown) (unknown) ROS Sleep (units (unkn own) date) unknown) (unknown) (no (unknown) (unknown) Rate: regular rate (units (unknown) date) unknown) (unknown) (no (unknown) (unknown) Reason For Visit (units (unknown) date) unknown) (unknown) (no (unknown) (unknown) Reports myalgia (units (unknown) date) interfering with unknown) sleep; Denies arthralgia interfering with (unknown) (no (unknown) (unknown) Reports napping on (units (unknown) date) occassion; Denies unknown) hypnagogic hallucinations or sleep (unknown) (no (unknown) (unknown) Reports nasal (units ( unknown) date) congestion at night; unknown) Denies epistaxis, runny nose, sore throat in (unknown) (no (unknown) (unknown) Resp (units (unkno wn) date) unknown) (unknown) (no (unknown) (unknown) Respiration 16 (units (unknown) date) unknown) (unknown) (no (unknown) (unknown) Respiratory (units (un known) date) unknown) (unknown) (no (unknown) (unknown) Rhythm: regular (units (unknown) date) rhythm unknown) (unknown) (no (unknown) (unknown) Hollie comes in today (uni ts (unknown) date) for follow-up on his unknown) CPAP therapy. We increased his (unknown) (no (unknown) (unknown) Sclera: sclerae (units (unknown) date) normal unknown) (unknown) (no (unknown) (unknown) Signed By: (units (unk nown) date) unknown) (unknown) (no (unknown) (unknown) Sitting and Reading: (uni ts (unknown) date) 0 = Never (None) unknown) (unknown) (no (unknown) (unknown) Sitting and talking (unit s (unknown) date) to someone: 0 = Never unknown) (None) (unknown) (no (unknown) (unknown) Sitting inactive in (unit s (unknown) date) a public place: 2 = unknown) Moderate (unknown) (no (unknown) (unknown) Sitting quietly (units (unknown) date) after lunch (no unknown) alcohol): 1 = Slight (unknown) (no (unknown) (unknown) Sleep Schedule (units (unknown) date) Branch: consistent, unknown) daytime somnolence occasional, snoring not (unknown) (no (unknown) (unknown) Smoking Status: (units (unknown) date) Never smoker unknown) (unknown) (no (unknown) (unknown) Social History (units (unknown) date) unknown) (unknown) (no (unknown) (unknown) Speech: speech (units (unknown) date) normal unknown) (unknown) (no (unknown) (unknown) Stopped for a few (units (unknown) date) minutes in traffic: 0 unknown) = Never (None) (unknown) (no (unknown) (unknown) Symptoms (units (unkno wn) date) unknown) (unknown) (no (unknown) (unknown) This note may have (units (unknown) date) been all or partially unknown) generated using voice recognition (unknown) (no (unknown) (unknown) Tobacco + Substance (unit s (unknown) date) Use unknown) (unknown) (no (unknown) (unknown) Tobacco Status (units (unknown) date) unknown) (unknown) (no (unknown) (unknown) Treatment Effects: (units (unknown) date) Pap Treatment unknown) Response/Side Effects: adherent to current PAP (unknown) (no (unknown) (unknown) Treatment (units (unkn own) date) Response/Side Affects unknown) (unknown) (no (unknown) (unknown) Usage: 100%, w/100% (units (unknown) date) of that time > 4 unknown) hours. Leak: 4.7 L/min flowAHI: (unknown) (no (unknown) (unknown) Visit Reasons: 6m (units (unknown) date) optigen/reschld from unknown) mee (unknown) (no (unknown) (unknown) Visit type (FU): (units (unknown) date) follow up of ANETTE unknown) therapy Follow up evaluation of ANETTE therapy: (unknown) (no (unknown) (unknown) Vitals (units (unkno wn) date) unknown) (unknown) (no (unknown) (unknown) Watching TV: 2 = (units (unknown) date) Moderate unknown) (unknown) (no (unknown) (unknown) Weight 114.759 kg (units (unknown) date) unknown) (unknown) (no (unknown) (unknown) appreciated, apnea (units (unknown) date) not witnessed, unknown) choking or gasping Choking or Gasping Branch: (unknown) (no (unknown) (unknown) caregiver/support (units (unknown) date) person: No unknown) (unknown) (no (unknown) (unknown) consentrating/focusi (uni ts (unknown) date) ng durng the day unknown) (unknown) (no (unknown) (unknown) denied (units (unkno wn) date) unknown) (unknown) (no (unknown) (unknown) denied, early (units ( unknown) date) morning awakening unknown) rare, spending time in bed not sleeping a li (unknown) (no (unknown) (unknown) denied, epworth sleep (uni ts (unknown) date) scale score (12/06), unknown) bruxism Bruxism Branch: denied, sleep (unknown) (no (unknown) (unknown) denies night sweats, (unit s (unknown) date) denies morning unknown) headache, reports nasal congestion at night, (unknown) (no (unknown) (unknown) denies nocturnal (units (unknown) date) palpitations, denies unknown) heart burn symptoms at night, denies (unknown) (no (unknown) (unknown) details: to Luz (units (unknown) date) unknown) (unknown) (no (unknown) (unknown) have occurred. If (units (unknown) date) there are any unknown) questions, please contact the Medical Records (unknown) (no (unknown) (unknown) his ANETTE (units (unkno wn) date) unknown) (unknown) (no (unknown) (unknown) household members: (units (unknown) date) spouse unknown) (unknown) (no (unknown) (unknown) housing: house (units (unknown) date) unknown) (unknown) (no (unknown) (unknown) iodine Allergy (units (unknown) date) (Verified 12/14/20 unknown) 14:46) (unknown) (no (unknown) (unknown) little less sleepy (units (unknown) date) throughout the day. unknown) He reports no difficulties with the (unknown) (no (unknown) (unknown) lives independently: (uni ts (unknown) date) Yes unknown) (unknown) (no (unknown) (unknown) machine or his full (units (unknown) date) face mask, despite unknown) his persistent claustrophia. His daytime (unknown) (no (unknown) (unknown) marital status: (units (unknown) date) unknown) (unknown) (no (unknown) (unknown) may occur. (units (unk nown) date) Occasional wrong-word unknown) or 'sound-alike' substitutions may have (unknown) (no (unknown) (unknown) motor deficits (units (unknown) date) unknown) (unknown) (no (unknown) (unknown) nocturia, denies (units (unknown) date) pain, denies unknown) dizziness in the morning or denies trouble (unknown) (no (unknown) (unknown) occupational status: (uni ts (unknown) date) previously employed unknown) (unknown) (no (unknown) (unknown) occurred due to the (unit s (unknown) date) inherent limitations unknown) of voice recognition software. Please (unknown) (no (unknown) (unknown) on PAP well and (units (unknown) date) sleep quality well unknown) (unknown) (no (unknown) (unknown) paralysis (units (unkn own) date) unknown) (unknown) (no (unknown) (unknown) pressure at last (units (unknown) date) visit to 8-18 [facility], unknown) and he has tolerated that well, feeling a (unknown) (no (unknown) (unknown) read the note (units ( unknown) date) carefully and unknown) recognize, using context, where these substitutions (unknown) (no (unknown) (unknown) reports dry mouth, (units (unknown) date) denies sore throat in unknown) the morning, denies nocturnal cough, (unknown) (no (unknown) (unknown) sentences, no (units ( unknown) date) audible wheezes and unknown) no cough (unknown) (no (unknown) (unknown) sleep, weakness (units (unknown) date) associated with unknown) strong emotion or sleep paralysis (unknown) (no (unknown) (unknown) sleepiness has (units (unknown) date) improved on PAP unknown) therapy. The pressure does wake him up at night. (unknown) (no (unknown) (unknown) software. 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 (unknown) (no (unknown) (unknown) substance use type: (unit s (unknown) date) does not use unknown) (unknown) (no (unknown) (unknown) talking Sleep (units ( unknown) date) Talking Branch: unknown) denied and sleep walking Sleep Walking Branch: (unknown) (no (unknown) (unknown) the morning or dry (units (unknown) date) mouth in the morning unknown) (unknown) (no (unknown) (unknown) treatment stable on (unit s (unknown) date) treatment unknown) (unknown) (no (unknown) (unknown) ttle, normal bedtime (uni ts (unknown) date) ([id number]), normal unknown) wake time ([id number]), sleep schedule Result panel 6 (unknown) (no (unknown) (unknown) (no value) (units (unk nown) date) unknown) (unknown) (no (unknown) (unknown) Assessment and Plan: (uni ts (unknown) date) unknown) (unknown) (no (unknown) (unknown) Qualifiers: (units (un known) date) unknown) (unknown) (no (unknown) (unknown) (no value) (units (unk nown) date) unknown) (unknown) (no (unknown) (unknown) 12/04/21 (units (unkno wn) date) unknown) (unknown) (no (unknown) (unknown) 12/04/21 1839 (units ( unknown) date) unknown) (unknown) (no (unknown) (unknown) 14:02 (units (unkno wn) date) unknown) (unknown) (no (unknown) (unknown) [place] [id number] (unit s (unknown) date) unknown) (unknown) (no (unknown) (unknown) Insomnia type: (units (unknown) date) unspecified Qualified unknown) Code(s): G47.00 - Insomnia, (unknown) (no (unknown) (unknown) Rash (units (unkno wn) date) unknown) (unknown) (no (unknown) (unknown) Shows has a Positive (uni ts (unknown) date) results. unknown) (unknown) (no (unknown) (unknown) Signed (units (unkno wn) date) unknown) (unknown) (no (unknown) (unknown) Sleep Visit (units (un known) date) unknown) (unknown) (no (unknown) (unknown) [facility] unknown) (unknown) (no (unknown) (unknown) (no value) (units (unk nown) date) unknown) (unknown) (no (unknown) (unknown) Device data last 90 (unit s (unknown) date) days: unknown) (unknown) (no (unknown) (unknown) (1) Obstructive (units (unknown) date) sleep apnea (adult) unknown) (pediatric): (unknown) (no (unknown) (unknown) (2) Insomnia: (units ( unknown) date) unknown) (unknown) (no (unknown) (unknown) (3) Excessive (units ( unknown) date) daytime sleepiness: unknown) (unknown) (no (unknown) (unknown) (4) History of (units (unknown) date) snoring: unknown) (unknown) (no (unknown) (unknown) 0 = Would never doze (uni ts (unknown) date) or sleep, 1 = Slight unknown) chance of dozing or sleeping, 2 = (unknown) (no (unknown) (unknown) 0.1 (units (unkno wn) date) unknown) (unknown) (no (unknown) (unknown) 12/04/21 (units (unkno wn) date) unknown) (unknown) (no (unknown) (unknown) 1 month for (units (un known) date) compliance check unknown) (unknown) (no (unknown) (unknown) [id number] (units (unkno wn) date) unknown) (unknown) (no (unknown) (unknown) Adhere to regular (units (unknown) date) mealtime schedule, unknown) avoid snacking (unknown) (no (unknown) (unknown) Affect: normal (units (unknown) date) affect unknown) (unknown) (no (unknown) (unknown) Age/Sex: 71 / M Date (uni ts (unknown) date) of Service: unknown) (unknown) (no (unknown) (unknown) Allergies (units (unkn own) date) unknown) (unknown) (no (unknown) (unknown) Assessment + Plan (units (unknown) date) unknown) (unknown) (no (unknown) (unknown) Associate your bed (units (unknown) date) with sleep. It's not unknown) a good idea to use your bed to watch TV, (unknown) (no (unknown) (unknown) Attending Dr: Ochoa (uni ts (unknown) date) Jane CAICEDO unknown) (unknown) (no (unknown) (unknown) AutoCPAP Set (units (u nknown) date) Pressures: 8-18 cwp unknown) (unknown) (no (unknown) (unknown) Avoid alcohol after (unit s (unknown) date) 4 pm unknown) (unknown) (no (unknown) (unknown) Avoid medications (units (unknown) date) which may interfere unknown) with sleep (unknown) (no (unknown) (unknown) Avoid random napping (uni ts (unknown) date) during the day; it unknown) can disturb the normal pattern of sleep (unknown) (no (unknown) (unknown) Avoid stimulants (units (unknown) date) such as caffeine, unknown) nicotine, and alcohol too close to bedtime. (unknown) (no (unknown) (unknown) BMI 35.2 (units (unkno wn) date) unknown) (unknown) (no (unknown) (unknown) BP 149/81 H (units (un known) date) unknown) (unknown) (no (unknown) (unknown) Being a passenger in (uni ts (unknown) date) a motor vehicle for unknown) an hour or so: 1 = Slight (unknown) (no (unknown) (unknown) Blood Pressure (units (unknown) date) Location Lt brachial unknown) (unknown) (no (unknown) (unknown) CPAP (8-18 cwp) (units (unknown) date) unknown) (unknown) (no (unknown) (unknown) Cardiac (units (unkno wn) date) unknown) (unknown) (no (unknown) (unknown) Chief Complaint: (units (unknown) date) Here to follow-up unknown) regarding the effectiveness of therapy for (unknown) (no (unknown) (unknown) Claustrophobia (units (unknown) date) () unknown) (unknown) (no (unknown) (unknown) Clinical Course (units (unknown) date) unknown) (unknown) (no (unknown) (unknown) Cognition: normal (units (unknown) date) cognition unknown) (unknown) (no (unknown) (unknown) Condition is Onset: (unit s (unknown) date) Chronic and ongoing unknown) condition (unknown) (no (unknown) (unknown) Conjunctivae: (units ( unknown) date) conjunctivae normal unknown) (unknown) (no (unknown) (unknown) Consider weaning (units (unknown) date) caffeine use, unknown) starting with no caffeine after 3pm (unknown) (no (unknown) (unknown) Const (units (unkno wn) date) unknown) (unknown) (no (unknown) (unknown) : 1950 (units (unknown) date) Acct:[id number] unknown) (unknown) (no (unknown) (unknown) Denies chest pain or (uni ts (unknown) date) nocturnal unknown) palpitations (unknown) (no (unknown) (unknown) Denies dyspnea at (units (unknown) date) night or cough unknown) (unknown) (no (unknown) (unknown) Denies morning (units (unknown) date) headache or dizzy in unknown) the morning (unknown) (no (unknown) (unknown) Denies reflux pain (units (unknown) date) at night unknown) (unknown) (no (unknown) (unknown) Denies seasonal (units (unknown) date) allergies unknown) (unknown) (no (unknown) (unknown) Denies snoring and (units (unknown) date) Denies stops unknown) breathing during sleep (unknown) (no (unknown) (unknown) Dept at (units (unkno wn) date) . unknown) (unknown) (no (unknown) (unknown) Details: (units (unkno wn) date) unknown) (unknown) (no (unknown) (unknown) Documented By: (units (unknown) date) Ochoa Lara MD unknown) 12/04/21 1402 (unknown) (no (unknown) (unknown) Drowsy driving (units (unknown) date) handout made unknown) available. (unknown) (no (unknown) (unknown) ENT (units (unkno wn) date) unknown) (unknown) (no (unknown) (unknown) Ears: hearing (units ( unknown) date) grossly normal unknown) bilaterally and external ears normal (unknown) (no (unknown) (unknown) Effort + Inspection: (uni ts (unknown) date) normal respiratory unknown) effort, able to speak in complete (unknown) (no (unknown) (unknown) Ensure adequate (units (unknown) date) exposure to natural unknown) light. This is particularly important for (unknown) (no (unknown) (unknown) [place] Score: 8 (units (unknown) date) unknown) (unknown) (no (unknown) (unknown) [place] Sleepiness (units (unknown) date) Scale unknown) (unknown) (no (unknown) (unknown) Establish a regular (units (unknown) date) relaxing bedtime unknown) routine. Try to avoid emotionally upsetting (unknown) (no (unknown) (unknown) Exam (units (unkno wn) date) unknown) (unknown) (no (unknown) (unknown) Exam Narrative (units (unknown) date) unknown) (unknown) (no (unknown) (unknown) Exam Narrative: (units (unknown) date) unknown) (unknown) (no (unknown) (unknown) Eyes (units (unkno wn) date) unknown) (unknown) (no (unknown) (unknown) Food can be (units (un known) date) disruptive right unknown) before sleep; stay away from large meals close to (unknown) (no (unknown) (unknown) GI (units (unkno wn) date) unknown) (unknown) (no (unknown) (unknown) General: cooperative (uni ts (unknown) date) and no acute distress unknown) (unknown) (no (unknown) (unknown) General: patient (units (unknown) date) alert and patient unknown) oriented x3 (unknown) (no (unknown) (unknown) Get regular moderate (uni ts (unknown) date) exercise (30 minutes, unknown) 3x/week) (unknown) (no (unknown) (unknown) HENMT (units (unkno wn) date) unknown) (unknown) (no (unknown) (unknown) HPI (units (unkno wn) date) unknown) (unknown) (no (unknown) (unknown) HPI Sleep Follow Up (unit s (unknown) date) unknown) (unknown) (no (unknown) (unknown) He reports no (units ( unknown) date) snoring on CPAP unknown) therapy, as well as no snoring while napping (unknown) (no (unknown) (unknown) Head: normal to (units (unknown) date) inspection unknown) (unknown) (no (unknown) (unknown) Height 180.34 cm (units (unknown) date) unknown) (unknown) (no (unknown) (unknown) Insomnia, (units (unkn own) date) psychophysiological unknown) (-1957) (unknown) (no (unknown) (unknown) Intake (units (unkno wn) date) unknown) (unknown) (no (unknown) (unknown) Light exposure (units (unknown) date) during the day helps unknown) maintain a healthy sleep-wake cycle. In (unknown) (no (unknown) (unknown) Loc: SLEEP (units (unk nown) date) unknown) (unknown) (no (unknown) (unknown) Lying down in the (units (unknown) date) afternoon: 2 = unknown) Moderate (unknown) (no (unknown) (unknown) Make sure that the (units (unknown) date) sleep environment is unknown) pleasant and relaxing. The bed should be (unknown) (no (unknown) (unknown) Mallampati score of (units (unknown) date) IV. The basics of the unknown) pathophysiology of sleep apnea and the (unknown) (no (unknown) (unknown) Medical History (units (unknown) date) (Reviewed 12/04/21 @ unknown) 14:34 by Ochoa Lara MD) (unknown) (no (unknown) (unknown) Moderate chance of (units (unknown) date) dozing or sleeping, 3 unknown) = High chance of dozing or sleeping (unknown) (no (unknown) (unknown) Mood: congruent mood (uni ts (unknown) date) unknown) (unknown) (no (unknown) (unknown) Musc (units (unkno wn) date) unknown) (unknown) (no (unknown) (unknown) Neck (units (unkno wn) date) unknown) (unknown) (no (unknown) (unknown) Neck: normal visual (unit s (unknown) date) inspection unknown) (unknown) (no (unknown) (unknown) Neuro (units (unkno wn) date) unknown) (unknown) (no (unknown) (unknown) Neurological (units (u nknown) date) unknown) (unknown) (no (unknown) (unknown) Nutritional (units (un known) date) Appearance: obese unknown) (unknown) (no (unknown) (unknown) Obesity (BMI (units (u nknown) date) 30-39.9) unknown) (unknown) (no (unknown) (unknown) Obstructive sleep (units (unknown) date) apnea unknown) (unknown) (no (unknown) (unknown) PFSH (units (unkno wn) date) unknown) (unknown) (no (unknown) (unknown) PPD Serum Adverse (units (unknown) date) Reaction (Uncoded unknown) 12/14/20 14:46) (unknown) (no (unknown) (unknown) Pain (units (unkno wn) date) unknown) (unknown) (no (unknown) (unknown) Pain scale (1-10): 1 (uni ts (unknown) date) unknown) (unknown) (no (unknown) (unknown) Patient has a (units ( unknown) date) history of chronic unknown) snoring. Positional therapy and the use of (unknown) (no (unknown) (unknown) Patient instructed (units (unknown) date) to use scheduled naps unknown) as needed for drowsiness safety (unknown) (no (unknown) (unknown) Patient reports a (units (unknown) date) history of snoring unknown) and a disturbed sleep pattern. There is (unknown) (no (unknown) (unknown) Patient reports (units (unknown) date) difficulty falling unknown) asleep is denied, difficulty staying asleep (unknown) (no (unknown) (unknown) Patient reports (units (unknown) date) symptoms of chronic unknown) insomnia for more than 3 months as evidenced (unknown) (no (unknown) (unknown) Patient was (units (un known) date) encouraged to unknown) increase CPAP usage to a minimum of 4 hours a night, (unknown) (no (unknown) (unknown) Patient was (units (un known) date) encouraged to us his unknown) PAP therapy at 8-18 cwp on an alternating (unknown) (no (unknown) (unknown) Patient was (units (un known) date) instructed to avoid unknown) driving or operating heavy machinery when (unknown) (no (unknown) (unknown) Patient was (units (un known) date) instructed to return unknown) sooner if any questions or concerns arise. (unknown) (no (unknown) (unknown) Patient: (units (unkno wn) date) Gold Sanchez MR#: unknown) [id number] (unknown) (no (unknown) (unknown) Pertinent (units (unkn own) date) Positives/Negatives unknown) (unknown) (no (unknown) (unknown) Plan (units (unkno wn) date) unknown) (unknown) (no (unknown) (unknown) Position Sitting (units (unknown) date) unknown) (unknown) (no (unknown) (unknown) Positional therapy (units (unknown) date) as needed. unknown) (unknown) (no (unknown) (unknown) Properly timed (units (unknown) date) exercise can promote unknown) good sleep. Vigorous exercise should be (unknown) (no (unknown) (unknown) Psych (units (unkno wn) date) unknown) (unknown) (no (unknown) (unknown) Psychological (units ( unknown) date) unknown) (unknown) (no (unknown) (unknown) Pulse 82 (units (unkno wn) date) unknown) (unknown) (no (unknown) (unknown) Questionnaires (units (unknown) date) unknown) (unknown) (no (unknown) (unknown) ROS Sleep (units (unkn own) date) unknown) (unknown) (no (unknown) (unknown) Reason For Visit (units (unknown) date) unknown) (unknown) (no (unknown) (unknown) Reports myalgia (units (unknown) date) interfering with unknown) sleep; Denies arthralgia interfering with (unknown) (no (unknown) (unknown) Reports napping on (units (unknown) date) occassion; Denies unknown) hypnagogic hallucinations or sleep (unknown) (no (unknown) (unknown) Reports nasal (units ( unknown) date) congestion at night; unknown) Denies epistaxis, runny nose, sore throat in (unknown) (no (unknown) (unknown) Resp (units (unkno wn) date) unknown) (unknown) (no (unknown) (unknown) Respiration 16 (units (unknown) date) unknown) (unknown) (no (unknown) (unknown) Respiratory (units (un known) date) unknown) (unknown) (no (unknown) (unknown) Return visit in 6 (units (unknown) date) months to assess unknown) continued response to PAP therapy (unknown) (no (unknown) (unknown) Hollie comes in today (uni ts (unknown) date) for follow-up on his unknown) CPAP therapy. We increased his (unknown) (no (unknown) (unknown) Sclera: sclerae (units (unknown) date) normal unknown) (unknown) (no (unknown) (unknown) Signed By: (units (unk nown) date) <Electronically unknown) signed by Ochoa Lara MD> (unknown) (no (unknown) (unknown) Sitting and Reading: (uni ts (unknown) date) 0 = Never (None) unknown) (unknown) (no (unknown) (unknown) Sitting and talking (unit s (unknown) date) to someone: 0 = Never unknown) (None) (unknown) (no (unknown) (unknown) Sitting inactive in (unit s (unknown) date) a public place: 2 = unknown) Moderate (unknown) (no (unknown) (unknown) Sitting quietly (units (unknown) date) after lunch (no unknown) alcohol): 1 = Slight (unknown) (no (unknown) (unknown) Sleep Schedule (units (unknown) date) Branch: consistent, unknown) daytime somnolence occasional, snoring not (unknown) (no (unknown) (unknown) Sleep hygiene and (units (unknown) date) sleep schedules were unknown) discussed. This has improved on his PAP (unknown) (no (unknown) (unknown) Smoking Status: (units (unknown) date) Never smoker unknown) (unknown) (no (unknown) (unknown) Social History (units (unknown) date) unknown) (unknown) (no (unknown) (unknown) Speech: speech (units (unknown) date) normal unknown) (unknown) (no (unknown) (unknown) Stopped for a few (units (unknown) date) minutes in traffic: 0 unknown) = Never (None) (unknown) (no (unknown) (unknown) Symptoms (units (unkno wn) date) unknown) (unknown) (no (unknown) (unknown) The patient reports (unit s (unknown) date) symptoms of excessive unknown) daytime sleepiness as evidenced by (unknown) (no (unknown) (unknown) This has improved (units (unknown) date) with less daytime unknown) sleeping and an [place] Sleepiness Scale (unknown) (no (unknown) (unknown) This note may have (units (unknown) date) been all or partially unknown) generated using voice recognition (unknown) (no (unknown) (unknown) Tobacco + Substance (unit s (unknown) date) Use unknown) (unknown) (no (unknown) (unknown) Tobacco Status (units (unknown) date) unknown) (unknown) (no (unknown) (unknown) Treatment Effects: (units (unknown) date) Pap Treatment unknown) Response/Side Effects: adherent to current PAP (unknown) (no (unknown) (unknown) Treatment (units (unkn own) date) Response/Side Affects unknown) (unknown) (no (unknown) (unknown) Usage: 100%, w/100% (units (unknown) date) of that time > 4 unknown) hours. Leak: 4.7 L/min flowAHI: (unknown) (no (unknown) (unknown) Visit Reasons: 6m (units (unknown) date) optigen/reschld from unknown) mee (unknown) (no (unknown) (unknown) Visit type (FU): (units (unknown) date) follow up of ANETTE unknown) therapy Follow up evaluation of ANETTE therapy: (unknown) (no (unknown) (unknown) Vitals (units (unkno wn) date) unknown) (unknown) (no (unknown) (unknown) Watching TV: 2 = (units (unknown) date) Moderate unknown) (unknown) (no (unknown) (unknown) Weight 114.759 kg (units (unknown) date) unknown) (unknown) (no (unknown) (unknown) While alcohol is (units (unknown) date) well known to speed unknown) the onset of sleep, it disrupts sleep in (unknown) (no (unknown) (unknown) addition, avoiding (units (unknown) date) nighttime bright unknown) light exposure, which can occur with many (unknown) (no (unknown) (unknown) also a history of (units (unknown) date) excessive daytime unknown) sleepiness and chronic insomnia with a (unknown) (no (unknown) (unknown) and wakefulness. (units (unknown) date) Scheduled napping may unknown) be considered if appropriate for the (unknown) (no (unknown) (unknown) appreciated, apnea (units (unknown) date) not witnessed, unknown) choking or gasping Choking or Gasping Branch: (unknown) (no (unknown) (unknown) basis. (units (unkno wn) date) unknown) (unknown) (no (unknown) (unknown) bedtime. Also dietary (uni ts (unknown) date) changes can cause unknown) sleep problems, if someone is struggling (unknown) (no (unknown) (unknown) bring your problems (unit s (unknown) date) to bed. unknown) (unknown) (no (unknown) (unknown) but increased (units ( unknown) date) benefit from more unknown) usage was also explained. (unknown) (no (unknown) (unknown) by trouble staying (units (unknown) date) asleep and unknown) non-restorative sleep. This can be seen secondary (unknown) (no (unknown) (unknown) can be seen (units (un known) date) secondary to sleep unknown) apnea, insomnia, depression, medical conditions (unknown) (no (unknown) (unknown) caregiver/support (units (unknown) date) person: No unknown) (unknown) (no (unknown) (unknown) comfortable, the (units (unknown) date) room should be quiet, unknown) not too hot or cold, or too bright. (unknown) (no (unknown) (unknown) consentrating/focusi (uni ts (unknown) date) ng durng the day unknown) (unknown) (no (unknown) (unknown) conversations and (units (unknown) date) activities before unknown) trying to go to sleep. Don't dwell on, or (unknown) (no (unknown) (unknown) daytime sleeping and (uni ts (unknown) date) an elevated [place] unknown) Sleepiness Scale score of 04/07. This (unknown) (no (unknown) (unknown) denied (units (unkno wn) date) unknown) (unknown) (no (unknown) (unknown) denied, early (units ( unknown) date) morning awakening unknown) rare, spending time in bed not sleeping a li (unknown) (no (unknown) (unknown) denied, [place] sleep (uni ts (unknown) date) scale score (12/06), unknown) bruxism Bruxism Branch: denied, sleep (unknown) (no (unknown) (unknown) denies night sweats, (unit s (unknown) date) denies morning unknown) headache, reports nasal congestion at night, (unknown) (no (unknown) (unknown) denies nocturnal (units (unknown) date) palpitations, denies unknown) heart burn symptoms at night, denies (unknown) (no (unknown) (unknown) details: to Luz (units (unknown) date) unknown) (unknown) (no (unknown) (unknown) dishes. And, (units (u nknown) date) remember, chocolate unknown) has caffeine. (unknown) (no (unknown) (unknown) done before bed to (units (unknown) date) help initiate a unknown) restful night's sleep. (unknown) (no (unknown) (unknown) drowsy. (units (unkno wn) date) unknown) (unknown) (no (unknown) (unknown) effect on sleep in (units (unknown) date) general were unknown) discussed at length. After review of the (unknown) (no (unknown) (unknown) excellent and his (units (unknown) date) AHIflow is optimal. unknown) He reports no seeing improvement in h is (unknown) (no (unknown) (unknown) have occurred. If (units (unknown) date) there are any unknown) questions, please contact the Medical Records (unknown) (no (unknown) (unknown) his ANETTE (units (unkno wn) date) unknown) (unknown) (no (unknown) (unknown) household members: (units (unknown) date) spouse unknown) (unknown) (no (unknown) (unknown) housing: house (units (unknown) date) unknown) (unknown) (no (unknown) (unknown) iodine Allergy (units (unknown) date) (Verified 12/14/20 unknown) 14:46) (unknown) (no (unknown) (unknown) listen to the radio, (uni ts (unknown) date) or read as if you unknown) associate falling asleep with these ac (unknown) (no (unknown) (unknown) little less sleepy (units (unknown) date) throughout the day. unknown) He reports no difficulties with the (unknown) (no (unknown) (unknown) lives independently: (uni ts (unknown) date) Yes unknown) (unknown) (no (unknown) (unknown) machine or his full (units (unknown) date) face mask, despite unknown) his persistent claustrophia. His daytime (unknown) (no (unknown) (unknown) marital status: (units (unknown) date) unknown) (unknown) (no (unknown) (unknown) may occur. (units (unk nown) date) Occasional wrong-word unknown) or 'sound-alike' substitutions may have (unknown) (no (unknown) (unknown) montelukast was also (unit s (unknown) date) reviewed. This was unknown) noted to be moderate on the sleep study. (unknown) (no (unknown) (unknown) movements. for this (unit s (unknown) date) he has been on nasal unknown) cpap at [facility] and his compliance is (unknown) (no (unknown) (unknown) nasal saline and (units (unknown) date) nasal dilator strips unknown) were discussed. Use of nasal steroids and (unknown) (no (unknown) (unknown) nocturia, denies (units (unknown) date) pain, denies unknown) dizziness in the morning or denies trouble (unknown) (no (unknown) (unknown) occupational status: (uni ts (unknown) date) previously employed unknown) (unknown) (no (unknown) (unknown) occurred due to the (unit s (unknown) date) inherent limitations unknown) of voice recognition software. Please (unknown) (no (unknown) (unknown) of these findings (units (unknown) date) were discussed at unknown) length. the intermittent use of his cpap (unknown) (no (unknown) (unknown) older people who may (uni ts (unknown) date) not venture outside unknown) as frequently as children and adults. (unknown) (no (unknown) (unknown) on PAP well and (units (unknown) date) sleep quality well unknown) (unknown) (no (unknown) (unknown) optimal sleep (units ( unknown) date) schedule. unknown) (unknown) (no (unknown) (unknown) or can be a primary (unit s (unknown) date) problem. Risks and unknown) symptoms of drowsiness were reviewed. (unknown) (no (unknown) (unknown) paralysis (units (unkn own) date) unknown) (unknown) (no (unknown) (unknown) personal electronic (unit s (unknown) date) devices, can also unknown) help maintain a healthy sleep-wake cycle. (unknown) (no (unknown) (unknown) physical findings and (uni ts (unknown) date) clinical history it unknown) was determined that a diagnostic sleep (unknown) (no (unknown) (unknown) pressure at last (units (unknown) date) visit to [facility], unknown) and he has tolerated that well, feeling a (unknown) (no (unknown) (unknown) read the note (units ( unknown) date) carefully and unknown) recognize, using context, where these substitutions (unknown) (no (unknown) (unknown) reports dry mouth, (units (unknown) date) denies sore throat in unknown) the morning, denies nocturnal cough, (unknown) (no (unknown) (unknown) restriction. we will (uni ts (unknown) date) assess for snoring unknown) going forward as he adjusts his PAP (unknown) (no (unknown) (unknown) score of 12/06. we (units (unknown) date) will continue to unknown) monitor. (unknown) (no (unknown) (unknown) sentences, no (units ( unknown) date) audible wheezes and unknown) no cough (unknown) (no (unknown) (unknown) sleep apnea, (units (u nknown) date) moderate snoring, unknown) some desaturation events and no significant leg (unknown) (no (unknown) (unknown) sleep on cpap (units (u nknown) date) therapy. He questions unknown) the continued need for therapy. Implications (unknown) (no (unknown) (unknown) sleep, weakness (units (unknown) date) associated with unknown) strong emotion or sleep paralysis (unknown) (no (unknown) (unknown) sleepiness has (units (unknown) date) improved on PAP unknown) therapy. The pressure does wake him up at night. (unknown) (no (unknown) (unknown) software. 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 (unknown) (no (unknown) (unknown) study was indicated. (uni ts (unknown) date) Patient's diagnostic unknown) sleep study was consistent with mild (unknown) (no (unknown) (unknown) substance use type: (unit s (unknown) date) does not use unknown) (unknown) (no (unknown) (unknown) taken in the morning (uni ts (unknown) date) or late afternoon. A unknown) relaxing exercise, like yoga, can be (unknown) (no (unknown) (unknown) talking Sleep (units ( unknown) date) Talking Branch: unknown) denied and sleep walking Sleep Walking Branch: (unknown) (no (unknown) (unknown) the morning or dry (units (unknown) date) mouth in the morning unknown) (unknown) (no (unknown) (unknown) the second half as (units (unknown) date) the body begins to unknown) metabolize the alcohol, causing arousal. (unknown) (no (unknown) (unknown) therapy and (units (un known) date) continues when he is unknown) not using it. Implications of these findings (unknown) (no (unknown) (unknown) therapy to determine (uni ts (unknown) date) the clinical value unknown) was discussed as well. we will continue (unknown) (no (unknown) (unknown) therapy. (units (unkno wn) date) unknown) (unknown) (no (unknown) (unknown) tivities, you may (units (unknown) date) have more problems unknown) getting back to sleep during the night. (unknown) (no (unknown) (unknown) to follow. (units (unk nown) date) unknown) (unknown) (no (unknown) (unknown) to sleep apnea, (units (unknown) date) depression, medical unknown) conditions or can be an independent problem. (unknown) (no (unknown) (unknown) treatment stable on (unit s (unknown) date) treatment unknown) (unknown) (no (unknown) (unknown) ttle, normal bedtime (uni ts (unknown) date) ([id number]), normal unknown) wake time ([id number]), sleep schedule (unknown) (no (unknown) (unknown) unspecified (units (un known) date) unknown) (unknown) (no (unknown) (unknown) were discussed. He (units (unknown) date) will monitor his unknown) sleep quality on and off PAP therapy. (unknown) (no (unknown) (unknown) with a sleep (units (u nknown) date) problem, it's not a unknown) good time to start experimenting with spicy (unknown) (no (unknown) (unknown) without cpap. He has (uni ts (unknown) date) a history of nasal unknown) trauma and still has some nasal Social History No information. Vital Signs No information.
[2022-01-11 20:24] LABS: GLUCOSE, URINE (UA) NEGATIVE (NEGATIVE); KETONES,URINE (UA) 15 mg/dL (NEGATIVE); LEUKOCYTE ESTERASE, URINE NEGATIVE (NEGATIVE); NITRITE,URINE NEGATIVE (NEGATIVE); OCCULT BLOOD,URINE NEGATIVE (NEGATIVE); PH,URINE 6.5 PH (5.0-7.5); PROTEIN,URINE NEGATIVE (NEGATIVE); UROBILINOGEN,URINE 0.2 (NORMAL) E.U./dL (NORMAL)
[2022-01-11] MEDS ORDERED: SODIUM CHLORIDE 0.9% 1,000 ML IV STA (20:25)
[2022-01-11 20:27] LABS: BILIRUBIN,URINE MODERATE (NEGATIVE); CLARITY,URINE CLEAR (CLEAR); ICTOTEST,URINE POSITIVE
[2022-01-11 20:30] LABS: BASOPHILS % (AUTO) 0.6 %; EOSINOPHILS # (AUTO) 0.2 10^3/uL (0.0-0.7); EOSINOPHILS % (AUTO) 2.6 %; HCT - HEMATOCRIT 45.3 % (42.0-52.0); HGB - HEMOGLOBIN 15.4 g/dL (14.0-18.0); LYMPHOCYTES # (AUTO) 0.6 10^3/uL (1.5-3.5); LYMPHOCYTES % (AUTO) 9.1 %; MEAN CORPUSCULAR HEMOGLOBIN 31.2 pg (27.0-31.0); MEAN CORPUSCULAR VOLUME 91.7 fL (80.0-94.0); MEAN PLATELET VOLUME 10.2 fL (7.4-11.4); MONOCYTES # (AUTO) 0.5 10^3/uL (0.0-1.0); MONOCYTES % (AUTO) 7.3 %; NEUTROPHILS # (AUTO) 5.3 10^3/uL (1.5-6.6); NEUTROPHILS % (AUTO) 80.1 %; PLT - PLATELET COUNT 210 10^3/uL (130-450); RED BLOOD COUNT 4.94 10^6/uL (4.70-6.10); RED CELL DISTRIBUTION WIDTH 13.5 % (12.0-15.0); WHITE BLOOD COUNT 6.6 x10^3/uL (4.8-10.8)
--- NOTE | 2022-01-11 20:37 | ED Physician Documentation ---
History of Present Illness - Stated complaint Stated Complaint: MALE /FATIGUE - Chief complaint Chief Complaint: Abd Pain - Additonal information Additional information: 71-year-old male presents emergency department for evaluation of upper abdominal pain, generalized fatigue and dehydration. He states that 1 week ago on January 03 he had a dog bite. He went to a local walk-in clinic and was started on Augmentin. The following day he began having multiple bouts of nonbloody diarrhea. The diarrhea resolved 3 days ago but since then he has had a loss of appetite and upper abdominal pain. No vomiting. No fevers. No pertinent past surgical history. Review of Systems Constitutional: denies: Fever, Chills Throat: reports: Reviewed and negative Cardiac: reports: Reviewed and negative Respiratory: reports: Reviewed and negative GI: reports: Abdominal Pain, Nausea, Diarrhea. denies: Vomiting, Bloody / black stool : reports: Dysuria Skin: reports: Reviewed and negative PD PAST MEDICAL HISTORY - Past Surgical History Past Surgical History: Yes - Present Medications Home Medications: Ambulatory Orders Medication Instructions Recorded Confirmed Aspirin [Aspirin EC] 1 tab PO DAILY 05/28/18 06/04/19 Multivitamin [Multivitamins] 1 tab PO DAILY 05/28/18 06/04/19 - Allergies Allergies/Adverse Reactions: Allergies Allergy/AdvReac Type Severity Reaction Status Date / Time iodine Allergy Rash Verified 01/11/22 20:05 - Social History Does the pt smoke?: No Smoking Status: Never smoker Does the pt drink ETOH?: No Does the pt have substance abuse?: No - Immunizations Immunizations are current?: Yes - POLST Patient has POLST: No PD ED PE NORMAL - General General: Alert and oriented X 3, No acute distress, Other (obese) - HEENT HEENT: Atraumatic - Neck Neck: Supple, no meningeal sign, No adenopathy - Cardiac Cardiac: RRR, No murmur - Respiratory Respiratory: No respiratory distress, Clear bilaterally - Abdomen Abdomen: Normal bowel sounds, Soft, Non tender (Mild tenderness in the epigastric and right upper quadrant. No guarding or rebound.) - Back Back: No CVA TTP - Derm Derm: Normal color, Warm and dry, No rash, Other (no jaundice) - Extremities Extremities: No deformity, No tenderness to palpate, Normal ROM s pain - Neuro Neuro: Alert and oriented X 3, manager strategy 2-12 intact Eye Opening: Spontaneous Motor: Obeys Commands Verbal: Oriented GCS Score: 15 Results - Vitals Vitals: Vital Signs - 24 hr 01/11/22 01/11/22 19:58 20:04 Temperature 37.2 C Heart Rate 99 92 Respiratory 14 16 Rate Blood Pressure 144/90 H 156/79 H O2 Saturation 97 96 Oxygen O2 Source Room air - Labs Labs: Laboratory Tests 01/11/22 01/11/22 01/11/22 20:15 20:24 20:24 WBC 6.6 RBC 4.94 Hgb 15.4 Hct 45.3 MCV 91.7 MCH 31.2 H MCHC 34.0 RDW 13.5 Plt Count 210 MPV 10.2 Neut # (Auto) 5.3 Lymph # (Auto) 0.6 L Sullivan # (Auto) 0.5 Eos # (Auto) 0.2 Baso # (Auto) 0.0 Absolute Nucleated RBC 0.00 Nucleated RBC % 0.0 Sodium 139 Potassium 4.4 Chloride 104 Carbon Dioxide 26 Anion Gap 9.0 BUN 13 Creatinine 0.6 Estimated GFR (MDRD) 134 Glucose 186 H Calcium 9.6 Total Bilirubin 5.4 H AST 403 H ALT 760 H Alkaline Phosphatase 142 H Total Protein 7.5 Albumin 4.0 Globulin 3.5 Albumin/Globulin Ratio 1.1 Lipase 28 Urine Color DARK YELLOW Urine Clarity CLEAR Urine pH 6.5 Ur Specific [place] 1.020 Urine Protein NEGATIVE Urine Glucose (UA) NEGATIVE Urine Ketones 15 H Urine Occult Blood NEGATIVE Urine Nitrite NEGATIVE Urine Bilirubin MODERATE H Urine Urobilinogen 0.2 (NORMAL) Ur Leukocyte Esterase NEGATIVE Ur Microscopic Review NOT INDICATED Urine Culture Comments NOT INDICATED - Rads (name of study) CT abd Radiology: Final report received (Partially distended gallbladder without calcified gallstones or definite CT evidence of acute cholecystitis. Colonic diverticulosis without acute diverticulitis) PD MEDICAL DECISION MAKING - ED course Complexity details: reviewed results, re-evaluated patient, considered differential, d/w patient ED course: 71-year-old male presents the emergency department for evaluation of 24 hours anorexia, nausea and upper abdominal pain. He reportedly had a dog bite on January 03 and sought care at an outpatient clinic and was started on Augmentin. About 24 hours after the Augmentin was initiated he began having nonbloody diarrhea. This stopped 3 days ago. He thought he was on the mend until he began having the upper abdominal pain anorexia and nausea yesterday. On exam he appears very well without fevers. He does have some mild right upper quadrant abdominal tenderness without guarding or rebound. CBC today shows no leukocytosis however his electrolytes show significant transaminase and elevation of his T bili. There are no previous for comparison. I suspect this gentleman may have cholestatic hepatitis secondary to the Augmentin administration. However given the abnormalities in the LFTs a CT scan of the abdomen and pelvis was completed though not yet formally read. I also requested an abdominal ultrasound which has been completed though not formally read. Assuming no worrisome surgical abnormality on these imaging is the etiology of his symptoms may be cholestatic hepatitis secondary to Augmentin administration. The patient will be signed out to my nighttime colleague to follow-up on the imaging results. If without acute worrisome findings the patient may benefit from discussion with a supervisor cabinetmaker to determine further course of care or treatment which could include discharge home with follow-up repeat labs over the next few days. 2200: Patient is signed out to my nighttime colleague Dr. French. He is in stable condition. Departure - Departure Clinical Impression: Abnormal liver function test, Total bilirubin, elevated Condition: Stable Record reviewed to determine appropriate education?: Yes Follow-Up: MEREDITH ODOM ARNP [Primary Care Provider] -
[2022-01-11 20:48] LABS: ALBUMIN/GLOBULIN RATIO 1.1 (1.0-2.2); BILIRUBIN,TOTAL 5.4 mg/dL (0.2-1.0); CALCIUM 9.6 mg/dL (8.5-10.3); CREATININE 0.6 mg/dL (0.6-1.2); POTASSIUM 4.4 mmol/L (3.5-5.0); TOTAL PROTEIN 7.5 g/dL (6.7-8.2)
--- NOTE | 2022-01-11 21:53 | CT Report ---
PROCEDURE: Abdomen/Pelvis WO INDICATIONS: RUQ TECHNIQUE: Noncontrast 5 mm thick sections acquired from the diaphragms to the symphysis. 5 mm coronal and sagi ttal reformats were then performed. For radiation dose reduction, the following was used: automated exposure control, adjustment of mA and/or kV according to patient size. COMPARISON: None. FINDINGS: Image quality: Excellent. Lung bases:There is mild dependent atelectasis. Heart: Heart is normal in size. ABDOMEN: Liver:Noncontrast evaluation demonstrates no discrete hepatic mass. Gallbladder:The gallbladder is nondistended with suggestion of mild wall thickening. No calcified ga llstones or pericholecystic fluid. Biliary ducts: No biliary ductal dilatation. Pancreas: Unremarkable. Spleen: Normal in size. Adrenal Glands: No adrenal nodules. Kidneys and Ureters: No hydronephrosis.There are left parapelvic renal cysts. Stomach and Bowel: Stomach, small bowel loops, and colon are normal in caliber and wall thickness. T he appendix is normal in appearance. There is colonic diverticulosis without acute diverticulitis. Peritoneum: No abnormal intraperitoneal fluid. No free air. Ventral Wall: No hernia. Abdominal Nodes: No retroperitoneal or mesenteric adenopathy by size criteria. Vessels: Aorta and inferior vena cava are normal in size. PELVIS: Pelvic Organs: Unremarkable. Bladder: Unremarkable. Pelvic Nodes: No enlarged lymph nodes. Miscellaneous: No inguinal hernias are seen. Bones: Visualized osseous structures demonstrate no suspicious focal lesions. IMPRESSION: 1. Partially distended gallbladder without calcified gallstones or definite CT evidence of acute chol ecystitis. 2. Colonic diverticulosis without acute diverticulitis. Reviewed by: Diogo Bowen MD on 01/11/2022 9:52 PM PDT Approved by: Diogo Bowen MD on 01/11/2022 9:52 PM PDT Station ID: [id number]
--- NOTE | 2022-01-11 22:53 | Ultrasound Report ---
PROCEDURE: Abdomen Limited INDICATIONS: abnormal lft; elevated bilirubin TECHNIQUE: Real-time focused scanning was performed of the abdomen, with image documentation. COMPARISON: Concurrent CT abdomen pelvis FINDINGS: The liver demonstrates increased echogenicity consistent with fatty infiltration. The main portal vei n demonstrates patent hepatopedal flow. Gallbladder is contracted. The gallbladder wall is mildly thickened, measuring up to 0.5 cm, but this may reflect sequelae of incomplete distention. No discrete gallstones identified. No definite perich olecystic fluid. There is a hypoechoic region adjacent to the gallbladder along the gallbladder fossa consistent with focal fatty sparing. The gallbladder is at the upper limits in caliber, measuring up to 0.6 cm. Right kidney measures 11 cm. No hydronephrosis. IMPRESSION: 1. Mild gallbladder wall thickening likely represents sequelae of incomplete distention. No cholelith iasis or definite evidence of cholecystitis. 2. Increased hepatic echogenicity consistent with fatty infiltration with focal sparing along the gal lbladder fossa. Reviewed by: Diogo Bowen MD on 01/11/2022 10:51 PM PDT Approved by: Diogo Bowen MD on 01/11/2022 10:51 PM PDT Station ID: [id number]
[2022-01-11 23:11] VITALS: BP 122/81
== END 2022-01-11 23:09 | disposition home or self-care (01) ==
LOC: ED 19:50
DX: R94.5 Abnormal results of liver function studies (principal); R82.2 Biliuria; Z20.822 Contact with and (suspected) exposure to COVID-19
CPT/HCPCS: 36415; 80053; 81001; 81003; 83690; 85025; 87086; 96360; 99284